=== PATIENT | female | born 1965 | race Hispanic/Latino ===

== ENCOUNTER 2017-04-20 14:06 | Emergency (ER) | payer SELFPAY | END 2017-04-20 15:14 | disposition home or self-care (01) | LOC: ERS 14:06 | DX: K03.81 Cracked tooth (principal); R59.0 Localized enlarged lymph nodes; E11.9 Type 2 diabetes mellitus without complications; F17.210 Nicotine dependence, cigarettes, uncomplicated; Z79.4 Long term (current) use of insulin; Z79.891 Long term (current) use of opiate analgesic; Z79.899 Other long term (current) drug therapy | CPT/HCPCS: 99283 ==

== ENCOUNTER 2017-07-16 11:40 | Inpatient (IN) | payer SELFPAY ==
[2017-07-16 13:45] LABS: Bilirubin Negative (Negative); Blood, Urine Large (Negative); Clarity CLOUDY (Clear); Glucose, Urine (Dipstick) >=1000 mg/dL (Negative); Leukocyte Negative (Negative); Nitrite Negative (Negative); Protein, Urine (Dipstick) > or equal to 300 mg/dL (Neg-Trace); Specific Gravity, Urine 1.028 (1.002-1.036); Urobilinogen 0.2 mg/dL (0.2-1.0)
[2017-07-16 13:47] LABS: Bacteria/HPF 1+ HPF (None Seen); Hyaline Casts/LPF 0-3 HYALINE CAST LPF (0-3 Hyaline)
[2017-07-16 13:57] LABS: Yeast-All Forms None Seen HPF (None Seen)
[2017-07-16] MEDS ORDERED: Acetaminophen 500 MG TAB ONE (14:06)
[2017-07-16 14:18] LABS: Hemoglobin 12.3 g/dL (12.0-16.0); Mean Corpuscular HGB CONC 32.5 g/dL (32.0-36.0); Mean Corpuscular Hemoglobin 30.3 pg (27.0-31.0); Mean Corpuscular Volume 93.3 fl (81.0-99.0); Mean Platelet Volume 7.5 fL (7.4-10.4); Platelet Count 282 thou/uL (130-400); RBC Distribution Width 11.9 % (11.5-14.5); Red Blood Cell (RBC) Count 4.06 mill/uL (4.20-5.40); White Blood Cell (WBC) Count 17.5 thou/uL (4.8-10.8)
[2017-07-16] MEDS ORDERED: Ketorolac Tromethamine 30 MG/ML VIAL ONE (14:20)
[2017-07-16 14:31] LABS: Band 25 % (5-11); Lymphocytes 2 % (21-51); MDiff Complete? YES; Monocytes 2 % (0-10); Neutrophil 70 % (42-75); PLT Morphology Comment Appears Adequate; RBC Morphology Normal
[2017-07-16 14:40] LABS: ALT (SGPT) 13 U/L (8-55); AST (SGOT) 16 U/L (5-34); Albumin 2.8 g/dL (3.5-5.0); Alkaline Phosphatase 128 U/L (40-150); Anion Gap 15 mmol/L (10-20); BUN (Urea Nitrogen) 21 mg/dL (7.0-18.7); Bilirubin, Total 0.5 mg/dL (0.2-1.2); Calc. Creatinine Clearance 0 mL/min (70-130); Calcium 9.5 mg/dL (7.8-10.44); Carbon Dioxide 24 mmol/L (22-29); Chloride 98 mmol/L (98-107); Estimated GFR-MDRD 38; Globulin 4.4 g/dL (2.4-3.5); Glucose 470 mg/dL (70-105); Potassium 3.8 mmol/L (3.5-5.1); Protein, Total 7.2 g/dL (6.0-8.3); Sodium 133 mmol/L (136-145)
[2017-07-16] MEDS ORDERED: Insulin Regular 300 UNITS/3 ML VIAL ONE (15:10)
--- NOTE | 2017-07-16 15:11 | RAD ---
PORTABLE CHEST 1 VIEW: DATE: 07/16/17. TIME: 1:31 p.m. HISTORY: Fever, back pain. FINDINGS/IMPRESSION: The heart size is normal. The lungs are expanded without focal areas of consolidation, pneumothorax, or pleural effusions. There is a plate of linear atelectasis in the right lower lung. POS: [facility]
--- NOTE | 2017-07-16 16:37 | CT ---
CT ABDOMEN AND PELVIS WITH IV CONTRAST: HISTORY: Fever. Abdominal and back pain. Chills. UTI. FINDINGS: There are mild dependent changes in the lung bases. Absence of oral contrast reduces the sensitivity of the exam. There is also subtle enhancement of the solid organs. Calcified gallstones are seen. No free air or free fluid is identified in the abdomen or pelvis. A normal appearing appendix is noted. There is fecal material in the rectosigmoid. A uterus is presen t. There is heterogeneity and enhancement of the left renal cortex with perirenal inflammatory changes. No hydroureteronephrosis is seen on either side. There is no evidence of aneurysmal dilatation of t he abdominal aorta. There are degenerative changes in the spine. IMPRESSION: Findings suspicious for pyelonephritis. A renal ultrasound should be performed after a course of antibiotics, to exclude renal mass. POS: [facility]
[2017-07-16] MEDS ORDERED: ISOVUE-370 76%-LOCM 1 ML ONE (17:04)
[2017-07-16] MEDS ORDERED: Dextrose 5% in Water 1,000 ML IV PRN (18:02)
[2017-07-16] MEDS ORDERED: HumaLOG 300 UNITS/3 ML VIAL SC PRN (18:02)
[2017-07-16] MEDS ORDERED: Dextrose 50% Abboject 50 ML SYRINGE SLOW IVP PRN (18:02)
[2017-07-16 18:31] VITALS: BMI 35.3
[2017-07-16] MEDS: Sodium Chloride 0.9% 1,000 ML IV SCH (18:38)
[2017-07-16 19:13] LABS: Lactic Acid 2.4 mmol/L (0.5-2.2)
[2017-07-16] MEDS: Ondansetron HCl/PF 4 MG/2 ML Vial IVP PRN (20:47)
[2017-07-16] MEDS: Famotidine 20 MG TAB PO SCH (20:48)
[2017-07-16] MEDS: Acetaminophen 325 MG TAB PO PRN (20:52)
--- NOTE | 2017-07-17 02:34 | HP ---
CHIEF COMPLAINT: Urinary frequency and generalized aches and fever. HISTORY OF PRESENT ILLNESS: This is a 52-year-old female patient, who presented to the ER with gener alized body aches and fever and urinary frequency. Denies any significant dysuria. On presentation to the ER, the patient was noted to be very ill-looking, required about 4 liters of IV fluid to stabi lize the hemodynamics. The patient noted to be very febrile with elevated lactate, received broad sp ectrum antibiotics including gentamicin, vancomycin, and cefepime. The patient is now being admitted for urinary tract infection that has progressed to urinary tract infection/pyelonephritis. The edgar ent denies any sick contacts. PAST MEDICAL HISTORY: Significant for diabetes, , depression, hypertension, and tobacco use. MEDICATIONS: Reviewed and as documented on frintit. ALLERGIES: No known drug allergies. FAMILY HISTORY: Not significantly related to the presenting illness. SOCIAL HISTORY: Significant for tobacco usage. No alcohol, no illicit drug use. REVIEW OF SYSTEMS: As documented in the body of the history. All the other systems were reviewed an d were found not to be significantly related to the presenting illness. LABORATORY INVESTIGATION: Showed a white count 17,500. Chemistry shows sodium 133, creatinine 1.47, blood sugar of 470 with BUN of 21, globulin 4.4 with albumin of 2.8. PHYSICAL EXAMINATION: GENERAL: The patient was found to be ill-looking. VITAL SIGNS: Blood pressure 109/56, respiratory rate 18, O2 sat of 96%. HEENT: Unremarkable. Moist oral mucosa. NECK: Supple. CARDIOVASCULAR SYSTEM: First and second heart sounds were heard. RESPIRATORY SYSTEM: Clear to auscultation anteriorly. DIGESTIVE SYSTEM: Revealed a benign abdomen. EXTREMITIES: No peripheral edema. SKIN: Showed dry skin. Otherwise, no new gross rash. LYMPHATICS: No peripheral lymphadenopathy. IMPRESSION: 1. Urinary tract infection/pyelonephritis. 2. Type 2 diabetes. 3. Tobacco use. 4. Hypertension. PLAN: 1. Admit the patient to ICU. 2. Broad spectrum antibiotics pending urine and blood culture and sensitivity. 3. IV fluid resuscitation. 4. Continue hypoglycemic agents in addition to sliding scale. 5. Further management to be dependent on the clinical course. The patient counseled on the need to discontinue tobacco usage. CODE STATUS: FULL.
[2017-07-17] MEDS ORDERED: Morphine 10 MG/ML CARPUJECT IV SCH (03:15)
[2017-07-17] MEDS ORDERED: HYDROcodone/Acetaminophen 5/325 mg Tablet PO PRN (03:19)
[2017-07-17] MEDS: Sodium Chloride 0.9% 1,000 ML IV SCH ×2 (03:28→12:29)
[2017-07-17] MEDS: Acetaminophen 325 MG TAB PO PRN ×3 (03:32→20:10)
[2017-07-17 05:43] LABS: Anion Gap 13 mmol/L (10-20); BUN (Urea Nitrogen) 26 mg/dL (7.0-18.7); Calc. Creatinine Clearance 73 mL/min (70-130); Calcium 7.9 mg/dL (7.8-10.44); Carbon Dioxide 20 mmol/L (22-29); Chloride 102 mmol/L (98-107); Estimated GFR-MDRD 39; Glucose 417 mg/dL (70-105); Potassium 3.7 mmol/L (3.5-5.1); Sodium 131 mmol/L (136-145)
[2017-07-17 05:44] LABS: Band 32 % (5-11); Hemoglobin 9.5 g/dL (12.0-16.0); Lymphocytes 6 % (21-51); MDiff Complete? YES; Mean Corpuscular HGB CONC 32.5 g/dL (32.0-36.0); Mean Corpuscular Hemoglobin 30.5 pg (27.0-31.0); Mean Corpuscular Volume 93.8 fl (81.0-99.0); Mean Platelet Volume 7.7 fL (7.4-10.4); Monocytes 5 % (0-10); Neutrophil 57 % (42-75); PLT Morphology Comment Appears Adequate; Platelet Count 190 thou/uL (130-400); RBC Distribution Width 12.1 % (11.5-14.5); Red Blood Cell (RBC) Count 3.13 mill/uL (4.20-5.40)
[2017-07-17] MEDS: Famotidine 20 MG TAB PO SCH ×2 (08:50→20:26)
[2017-07-17] MEDS: Enoxaparin Sodium 40 MG/0.4 ML SYRINGE SC SCH (08:50)
--- NOTE | 2017-07-17 11:32 | PDOC.PN ---
- Subjective Encounter Start Date: 07/17/17 Encounter Start Time: 15:00 Subjective: Patient with some cough and SOB since last night. Back pain better with -: Morphine. Patient desating some today before the morphine, better on O2 NC. - Objective MAR Reviewed: Yes Vital Signs & Weight: Vital Signs (12 hours) Temp Pulse Resp BP Pulse Ox 07/17/17 08:00 100.2 F H 89 20 96 07/17/17 07:52 100.2 F H 89 20 118/68 91 L 07/17/17 04:00 102 H 18 155/70 H 92 L 07/17/17 03:15 100 F H 07/17/17 00:00 96 18 117/58 L 97 Weight Weight 212 lb 6.4 oz I&O: 07/16/17 07/17/17 07/18/17 06:59 06:59 06:59 Intake Total 1740 120 Output Total 800 Balance 940 120 Result Diagrams: 07/17/17 04:41 07/17/17 04:41 Additional Labs: Accuchecks 07/17/17 07/17/17 07/16/17 11:14 06:28 20:56 POC Glucose 341 H 404 H 405 H Phys Exam - Physical Examination Constitutional: NAD HEENT: moist MMs occ rales in bases Cardiovascular: RRR, no significant murmur Gastrointestinal: soft, positive bowel sounds Musculoskeletal: no edema Neurological: non-focal, moves all 4 limbs Psychiatric: normal affect, A&O x 3 Dx/Plan (1) Pyelonephritis Code(s): N12 - TUBULO-INTERSTITIAL NEPHRITIS, NOT SPCF ACUTE OR CHRONIC Status: Acute Comment: On Cipro and Rocephin, E. coli growing from urine and blood (2) Sepsis Code(s): A41.9 - SEPSIS, UNSPECIFIED ORGANISM Status: Acute Qualifiers: Sepsis type: Escherichia coli Qualified Code(s): A41.51 - Sepsis due to Escherichia coli [E. coli] (3) Bacteremia due to Escherichia coli Code(s): R78.81 - BACTEREMIA Status: Acute (4) Diabetes mellitus with insulin therapy Code(s): E11.9 - TYPE 2 DIABETES MELLITUS WITHOUT COMPLICATIONS; Z79.4 - SKILLED NURSING (CURRENT) USE OF INSULIN Status: Acute Comment: Resume home Levemir (5) Hypertension Code(s): I10 - ESSENTIAL (PRIMARY) HYPERTENSION Status: Chronic Comment: not currently elevated (6) Acute renal failure (ARF) Status: Acute Comment: due to sepsis, continue fluid replacement, hold HOLLY-I for now - Plan cont current plan of care, continue antibiotics, DVT proph w/lovenox Patient desating a bit, on O2 now. Taking good po and urinating well so -: will d/c IV fluids. -: Will ask Dr. Huang to see her. * . - Discharge Day Encounter end time: 15:30
[2017-07-17] MEDS ORDERED: Insulin Detemir 100 UNITS/ML 30 UNITS in Pre-Filled Syringe 1 EACH SC SCH (11:45)
[2017-07-17] MEDS: Morphine 4 MG/ML VIAL SLOW IVP PRN ×2 (13:41→18:27)
[2017-07-17] MEDS: Ondansetron HCl/PF 4 MG/2 ML Vial IVP PRN (13:41)
[2017-07-17] MEDS: HumaLOG 300 UNITS/3 ML VIAL SC PRN ×2 (14:13→18:25)
[2017-07-17] MEDS ORDERED: cefTRIAXone\\ROCEPHIN 1 GM, Syringe 0.4 ML in Sterile Water 9.6 ML SLOW IVP SCH (15:00)
[2017-07-17] MEDS ORDERED: Sodium Chloride 0.9% 1,000 ML IV SCH (16:00)
--- NOTE | 2017-07-17 16:31 | RAD ---
RADIOGRAPH CHEST 1 VIEW: HISTORY: 52-year-old female with hypoxemia. FINDINGS: There are no air space densities, pulmonary edema, pneumothorax, or cardiomegaly. The lateral costop hrenic angles are sharp. IMPRESSION: No acute cardiopulmonary findings. aaliyah POS: [facility]
[2017-07-17] MEDS ORDERED: cefTRIAXone\\ROCEPHIN 1 GM in Sodium Chloride 0.9% 100 ML IVPB SCH (18:15)
[2017-07-17] MEDS: Ondansetron ODT 4 MG TAB PO PRN (18:33)
--- NOTE | 2017-07-17 19:47 | CON ---
DATE OF CONSULTATION: 07/17/2017 SERVICE: Pulmonary Medicine. REASON FOR CONSULTATION: IMCU patient. HISTORY OF PRESENT ILLNESS: The patient is a 52-year-old female with past medical history significant for essentially nothing. She presented to the hospital with a 3-day history of increasing fevers. These were spiking intermittently and got higher and higher up to 103. She also had flank discomfort in frequency. In the emergency department, she underwent a CT of the abdomen and pelvis. There were findings consistent with possible pyelonephritis. She was put on some antibiotics, aggressively and appropriately resuscitated with fluids. She clears her sepsis profile throughout the day and started having increasing oxygen requirements. She is a little bit sleepy right now, but she wakes up appropriately and answers all questions. She denies any current fevers, chills, nausea or vomiting. Her abdominal/back discomfort is improving dramatically. PAST MEDICAL HISTORY: 1. Type 2 diabetes mellitus. 2. Major depressive disorder. 3. Hypertension. 4. Tobacco abuse. PAST SURGICAL HISTORY: None. MEDICATIONS: List of her inpatient medications were reviewed. No specific updates were made at this time. ALLERGIES: No known drug allergies. SOCIAL HISTORY: Negative for current alcohol or illicit drug use. She has a 20 -pack-year history of smoking and continues to smoke half pack on a daily basis. FAMILY HISTORY: Noncontributory. REVIEW OF SYSTEMS: General, head, ears, eyes, nose, throat, cardiovascular, respiratory, GI, , musculoskeletal, neurologic and skin is negative except as mentioned in the HPI. PHYSICAL EXAMINATION: VITAL SIGNS: Currently afebrile with a T-max of 102.9. Pulse 90, blood pressure 124/66, respirations 20, saturation 98% on 2 liters nasal cannula while sleeping. Interestingly, when she woke up and started speaking, her saturations dropped to 89%. HEENT: Normocephalic, atraumatic. Sclerae are white, conjunctivae pink. Oral and nasal mucosa is moist without lesions. LUNGS: Excellent air entry. There is no prolonged expiratory phase. I do appreciate some crackles present. HEART: Normal rate, regular. ABDOMEN: Soft, nontender, nondistended. Bowel sounds are positive. She does have left flank tenderness as well as costovertebral angle tenderness. I do not appreciate rebound or guarding presently. MUSCULOSKELETAL: No cyanosis or clubbing. There is trace pitting in the bilateral lower extremities. NEUROLOGIC: Grossly nonfocal. LABORATORY DATA: Sodium 131, creatinine 1.41 and stable. Basic metabolic profile is otherwise unremarkable. WBC is down trending to 14.0. The band count is responding very nicely to 32%. Urinalysis is positive for lots of white blood cells, very few red blood cells, glycosuria and ketonuria. Blood cultures x2 are growing E. coli. Urine culture is also growing E. coli. Influenza for A and B is negative. ASSESSMENT: 1. Severe sepsis. 2. Pyelonephritis. 3. Acute kidney injury, presumed. 4. Type 2 diabetes mellitus. 5. Acute hypoxic respiratory failure. 6. Obstructive sleep apnea, possible. PLAN: My guess is the patient's third spacing some fluid into her lungs. The CT scan of the abdomen and pelvis demonstrated no evidence of acute inflammatory process of the lungs on presentation to the emergency department. I will provide her with a small dose of Lasix. We will wean oxygen away as tolerated and focus on mobilizing her starting tomorrow morning. In the morning , if she remains stable and is on minimal oxygen, she can be transitioned out of the ICU to the medical unit. I will continue to follow for the time being. 70 minutes have been devoted to this patient in various activities. For at least half of this time, I was at the bedside in direct patient interaction or coordinating care with the care team. For the remainder of the time I was immediately available to the patient in the hospital unit. JUICE
[2017-07-17] MEDS: traZODone HCl 50 MG TAB PO SCH (20:26)
[2017-07-17] MEDS: Insulin Detemir 100 UNITS/ML 40 UNITS in Pre-Filled Syringe 1 EACH SC SCH (20:28)
[2017-07-18] MEDS: Ondansetron HCl/PF 4 MG/2 ML Vial IVP PRN ×2 (01:42→21:03)
[2017-07-18] MEDS ORDERED: Promethazine HCl 25 MG/ML VIAL SLOW IVP PRN (04:55)
[2017-07-18 04:56] LABS: #Eosinphils 0.1 thou/uL (0.0-0.7); #Lymphocytes 1.6 thou/uL (1.20-3.40); #Monocytes 0.8 thou/uL (0.11-0.59); #Neutrophils 10.8 thou/uL (1.40-6.50); %Basophils 0.1 % (0.0-1.0); %Eosinophils 0.9 % (0.0-10.0); %Lymphocytes 12.1 % (21.0-51.0); %Neutrophils 80.9 % (42.0-75.0); Hemoglobin 9.2 g/dL (12.0-16.0); Mean Corpuscular HGB CONC 32.8 g/dL (32.0-36.0); Mean Corpuscular Hemoglobin 30.9 pg (27.0-31.0); Mean Corpuscular Volume 94.2 fl (81.0-99.0); Mean Platelet Volume 7.6 fL (7.4-10.4); Platelet Count 184 thou/uL (130-400); RBC Distribution Width 12.3 % (11.5-14.5); Red Blood Cell (RBC) Count 2.99 mill/uL (4.20-5.40); White Blood Cell (WBC) Count 13.3 thou/uL (4.8-10.8)
[2017-07-18 04:58] LABS: Anion Gap 11 mmol/L (10-20); BUN (Urea Nitrogen) 27 mg/dL (7.0-18.7); Calc. Creatinine Clearance 72 mL/min (70-130); Calcium 8.5 mg/dL (7.8-10.44); Carbon Dioxide 21 mmol/L (22-29); Chloride 104 mmol/L (98-107); Estimated GFR-MDRD 39; Glucose 136 mg/dL (70-105); Potassium 3.4 mmol/L (3.5-5.1); Sodium 133 mmol/L (136-145)
[2017-07-18] MEDS ORDERED: Furosemide 20 MG/2 ML VIAL SLOW IVP SCH ×2 (06:00)
[2017-07-18] MEDS: Enoxaparin Sodium 40 MG/0.4 ML SYRINGE SC SCH (08:03)
[2017-07-18] MEDS: Famotidine 20 MG TAB PO SCH (08:03)
[2017-07-18] MEDS ORDERED: FLU VACC QS2017-18 36 mo. & older 0.5 ML SYRINGE IM ONE (09:00)
[2017-07-18] MEDS: Insulin Detemir 100 UNITS/ML 30 UNITS in Pre-Filled Syringe 1 EACH SC SCH (10:19)
[2017-07-18] MEDS: Acetaminophen 325 MG TAB PO PRN ×2 (11:51→20:55)
--- NOTE | 2017-07-18 12:17 | PDOC.PN ---
- Subjective Encounter Start Date: 07/18/17 Encounter Start Time: 12:15 Subjective: Anterior chest wall sore from coughing/nausea yesterday. Cough and nausea -: improved. Back pain better. No more fever. Off O2 this AM. - Objective MAR Reviewed: Yes Vital Signs & Weight: Vital Signs (12 hours) Temp Pulse Resp BP Pulse Ox 07/18/17 08:00 99.4 F 82 20 97 07/18/17 07:40 99.4 F 82 20 138/69 94 L 07/18/17 04:00 99.5 F 90 20 140/76 92 L Weight Weight 218 lb 8 oz I&O: 07/17/17 07/18/17 07/19/17 06:59 06:59 06:59 Intake Total 1740 670 120 Output Total 800 350 750 Balance 940 320 -630 Result Diagrams: 07/18/17 04:18 07/18/17 04:18 Additional Labs: Accuchecks 07/18/17 07/18/17 07/17/17 11:36 05:59 20:26 POC Glucose 113 H 123 H 234 H 07/17/17 07/17/17 16:51 14:13 POC Glucose 284 H 333 H Phys Exam - Physical Examination Constitutional: NAD HEENT: moist MMs Respiratory: no wheezing, no rales, no rhonchi, clear to auscultation bilateral TTP anteriorly reproduces pain Cardiovascular: RRR, no significant murmur Gastrointestinal: soft, non-tender, positive bowel sounds Musculoskeletal: no edema Neurological: non-focal, moves all 4 limbs Psychiatric: normal affect, A&O x 3 Dx/Plan (1) Pyelonephritis Code(s): N12 - TUBULO-INTERSTITIAL NEPHRITIS, NOT SPCF ACUTE OR CHRONIC Status: Acute Comment: On Cipro and Rocephin, E. coli growing from urine and blood, pansensitive, will d/c Rocephin (2) Sepsis Code(s): A41.9 - SEPSIS, UNSPECIFIED ORGANISM Status: Acute Qualifiers: Sepsis type: Escherichia coli Qualified Code(s): A41.51 - Sepsis due to Escherichia coli [E. coli] (3) Bacteremia due to Escherichia coli Code(s): R78.81 - BACTEREMIA Status: Acute (4) Diabetes mellitus with insulin therapy Code(s): E11.9 - TYPE 2 DIABETES MELLITUS WITHOUT COMPLICATIONS; Z79.4 - HALF-WAY (CURRENT) USE OF INSULIN Status: Acute Comment: Resume home Levemir (5) Hypertension Code(s): I10 - ESSENTIAL (PRIMARY) HYPERTENSION Status: Chronic Comment: not currently elevated (6) Acute renal failure (ARF) Status: Acute Comment: due to sepsis, stable (7) Hypoxia Code(s): R09.02 - HYPOXEMIA Status: Acute Comment: likely secondary to 3rd spacing of fluids, IV fluids stopped and single dose Lasix yesterday, stable today (8) Hypokalemia Code(s): E87.6 - HYPOKALEMIA Status: Acute Comment: likely due to Lasix dose , will give oral replacement today and recheck in AM - Plan cont current plan of care, continue antibiotics, DVT proph w/lovenox Stable for transfer to medical * . - Discharge Day Encounter end time: 12:30
[2017-07-18] MEDS ORDERED: Potassium Chloride 20 MEQ TAB PO SCH ×2 (12:30→20:30)
[2017-07-18] MEDS: Morphine 4 MG/ML VIAL SLOW IVP PRN (13:09)
[2017-07-18] MEDS: HYDROcodone/Acetaminophen 5/325 mg Tablet PO PRN (17:49)
[2017-07-18] MEDS: traZODone HCl 50 MG TAB PO SCH (20:55)
[2017-07-18] MEDS: Insulin Detemir 100 UNITS/ML 40 UNITS in Pre-Filled Syringe 1 EACH SC SCH (21:13)
--- NOTE | 2017-07-19 01:05 | PRG ---
DATE OF SERVICE: 07/18/2017 SERVICE: Pulmonary Medicine. INTERVAL HISTORY: The patient is doing great from a respiratory standpoint. She does not have any s ignificant shortness of breath or chest discomfort. Her flank pain is little improved. She denies a ny current fevers, chills, nausea or vomiting. There were no overnight events. Her blood pressures have firmed up very nicely. If anything, she is a touch hypertensive today. PHYSICAL EXAMINATION: VITAL SIGNS: Currently afebrile with a T-max overnight of 100.1. Pulse 80, blood pressure 143/81, r espirations 18, saturation 98% on room air. GENERAL: The patient is awake and alert, in no apparent distress. LUNGS: Decent air entry. There is no prolonged expiratory phase. Dependent crackles are evident. HEART: Normal rate, regular. ABDOMEN: Soft, nontender, nondistended. Bowel sounds are positive. MUSCULOSKELETAL: No cyanosis or clubbing. No pitting in the bilateral lower extremities. NEUROLOGIC: Grossly nonfocal. LABORATORY DATA: WBC 13.3, hemoglobin 9.2, platelets 184,000. Creatinine 1.42 and roughly stable. BUN 27, potassium 3.4. E. coli is growing in both the blood and the urine. Both of these organisms are pansensitive. Influenza A and B is unremarkable. ASSESSMENT: 1. Severe sepsis, resolving. 2. Pyelonephritis secondary to Escherichia coli. 3. Bacteremia secondary to Escherichia coli. 4. Acute kidney injury (versus chronic kidney disease). 5. Type 2 diabetes mellitus. 6. Acute hypoxic respiratory failure, resolved. 7. Obstructive sleep apnea, possible. PLAN: We will continue to gently diurese the patient. Potassium is low and will be replaced today. At this point, she has no further requirements for IMCU placement. As such, we can consider transit ioning her to the floor. Antibiotics could be tailored based on sensitivities.
[2017-07-19] MEDS: diphenhydrAMINE 25 MG CAP PO PRN (01:32)
[2017-07-19] MEDS: Aspirin/APAP/Caffeine Tab (Excedrin Migraine) PO PRN (01:33)
[2017-07-19 06:02] LABS: #Eosinphils 0.3 thou/uL (0.0-0.7); #Lymphocytes 1.9 thou/uL (1.20-3.40); #Monocytes 0.9 thou/uL (0.11-0.59); #Neutrophils 7.1 thou/uL (1.40-6.50); %Basophils 0.2 % (0.0-1.0); %Eosinophils 2.9 % (0.0-10.0); %Lymphocytes 18.4 % (21.0-51.0); %Neutrophils 69.5 % (42.0-75.0); Hemoglobin 8.9 g/dL (12.0-16.0); Mean Corpuscular HGB CONC 32.5 g/dL (32.0-36.0); Mean Corpuscular Hemoglobin 30.8 pg (27.0-31.0); Mean Corpuscular Volume 94.7 fl (81.0-99.0); Mean Platelet Volume 7.5 fL (7.4-10.4); Platelet Count 225 thou/uL (130-400); RBC Distribution Width 12.4 % (11.5-14.5); Red Blood Cell (RBC) Count 2.89 mill/uL (4.20-5.40); White Blood Cell (WBC) Count 10.2 thou/uL (4.8-10.8)
[2017-07-19 06:14] LABS: Anion Gap 12 mmol/L (10-20); BUN (Urea Nitrogen) 22 mg/dL (7.0-18.7); Calc. Creatinine Clearance 98 mL/min (70-130); Calcium 8.6 mg/dL (7.8-10.44); Carbon Dioxide 21 mmol/L (22-29); Chloride 107 mmol/L (98-107); Estimated GFR-MDRD 54; Glucose 66 mg/dL (70-105); Potassium 3.6 mmol/L (3.5-5.1); Sodium 136 mmol/L (136-145)
[2017-07-19] MEDS: Enoxaparin Sodium 40 MG/0.4 ML SYRINGE SC SCH (08:52)
[2017-07-19] MEDS: Insulin Detemir 100 UNITS/ML 30 UNITS in Pre-Filled Syringe 1 EACH SC SCH (09:49)
[2017-07-19] MEDS: HumaLOG 300 UNITS/3 ML VIAL SC PRN (14:21)
[2017-07-19] MEDS: HYDROcodone/Acetaminophen 5/325 mg Tablet PO PRN (14:24)
--- NOTE | 2017-07-19 18:11 | PDOC.PN ---
- Subjective Encounter Start Date: 07/19/17 Encounter Start Time: 12:00 Subjective: Patient feeling better. Pain in back better. A little shakey when got up -: earlier. - Objective MAR Reviewed: Yes Vital Signs & Weight: Vital Signs (12 hours) Temp Pulse Resp BP Pulse Ox 07/19/17 16:09 98.5 F 85 16 151/81 H 96 07/19/17 12:13 98.0 F 80 14 157/73 H 99 07/19/17 07:42 98.1 F 81 14 137/81 96 07/19/17 07:00 98.1 F 81 14 Weight Weight 218 lb 8 oz I&O: 07/18/17 07/19/17 07/20/17 06:59 06:59 06:59 Intake Total 670 6100 360 Output Total 350 750 Balance 320 5350 360 Result Diagrams: 07/19/17 05:16 07/19/17 05:16 Additional Labs: Accuchecks 07/19/17 07/19/17 07/19/17 15:14 10:27 06:21 POC Glucose 116 H 177 H 84 07/18/17 21:12 POC Glucose 131 H Phys Exam - Physical Examination Constitutional: NAD HEENT: moist MMs Respiratory: no wheezing, no rales, no rhonchi, clear to auscultation bilateral Cardiovascular: RRR, no significant murmur Gastrointestinal: soft, non-tender, positive bowel sounds Neurological: non-focal, moves all 4 limbs Psychiatric: normal affect, A&O x 3 Dx/Plan (1) Pyelonephritis Code(s): N12 - TUBULO-INTERSTITIAL NEPHRITIS, NOT SPCF ACUTE OR CHRONIC Status: Acute Comment: On Cipro and Rocephin, E. coli growing from urine and blood, pansensitive, will d/c Rocephin. Switching to oral Cipro. (2) Sepsis Code(s): A41.9 - SEPSIS, UNSPECIFIED ORGANISM Status: Acute Qualifiers: Sepsis type: Escherichia coli Qualified Code(s): A41.51 - Sepsis due to Escherichia coli [E. coli] (3) Bacteremia due to Escherichia coli Code(s): R78.81 - BACTEREMIA Status: Acute (4) Diabetes mellitus with insulin therapy Code(s): E11.9 - TYPE 2 DIABETES MELLITUS WITHOUT COMPLICATIONS; Z79.4 - INTERMEDIATE (CURRENT) USE OF INSULIN Status: Acute Comment: Resume home Levemir (5) Hypertension Code(s): I10 - ESSENTIAL (PRIMARY) HYPERTENSION Status: Chronic Comment: not currently elevated (6) Acute renal failure (ARF) Status: Resolved Comment: improved (7) Hypoxia Code(s): R09.02 - HYPOXEMIA Status: Acute Comment: likely secondary to 3rd spacing of fluids, improved with Lasix (8) Hypokalemia Code(s): E87.6 - HYPOKALEMIA Status: Resolved - Plan cont current plan of care, continue antibiotics * . - Discharge Day Encounter end time: 12:30
[2017-07-19] MEDS: Acetaminophen 325 MG TAB PO PRN (21:15)
[2017-07-19] MEDS: traZODone HCl 50 MG TAB PO SCH (21:16)
[2017-07-19] MEDS: Insulin Detemir 100 UNITS/ML 40 UNITS in Pre-Filled Syringe 1 EACH SC SCH (21:16)
[2017-07-19] MEDS: Ciprofloxacin 500 MG TAB PO SCH (21:17)
[2017-07-19] MEDS: metFORMIN 500 MG TAB PO SCH (21:17)
[2017-07-20] MEDS: Aspirin/APAP/Caffeine Tab (Excedrin Migraine) PO PRN ×2 (03:41→11:50)
[2017-07-20] MEDS: diphenhydrAMINE 25 MG CAP PO PRN (03:41)
[2017-07-20] MEDS: Ciprofloxacin 500 MG TAB PO SCH ×2 (05:19→19:59)
[2017-07-20 06:16] LABS: Anion Gap 12 mmol/L (10-20); BUN (Urea Nitrogen) 16 mg/dL (7.0-18.7); Calc. Creatinine Clearance 125 mL/min (70-130); Calcium 9.1 mg/dL (7.8-10.44); Carbon Dioxide 23 mmol/L (22-29); Chloride 105 mmol/L (98-107); Estimated GFR-MDRD 72; Glucose 82 mg/dL (70-105); Potassium 3.4 mmol/L (3.5-5.1); Sodium 137 mmol/L (136-145)
--- NOTE | 2017-07-20 07:52 | PDOC.PN ---
- Subjective Encounter Start Date: 07/20/17 Encounter Start Time: 10:00 Subjective: Patient was in shower, pulling up on a grab bar and it came off wall , hit -: left forehead. Large goose egg that is very painful but no LOC or other -: neuro signs. Had some back pain last night, better this AM. - Objective MAR Reviewed: Yes Vital Signs & Weight: Vital Signs (12 hours) Temp Pulse Resp BP Pulse Ox 07/20/17 04:41 98.5 F 78 15 154/81 H 98 07/20/17 00:02 98.5 F 80 16 117/67 93 L 07/19/17 20:10 98.6 F 92 16 139/83 96 07/19/17 20:00 98.6 F 92 16 96 Weight Weight 218 lb 8 oz I&O: 07/19/17 07/20/17 07/21/17 06:59 06:59 06:59 Intake Total 6100 2110 Output Total 750 Balance 5350 2110 Result Diagrams: 07/19/17 05:16 07/20/17 04:42 Additional Labs: Accuchecks 07/20/17 07/19/17 07/19/17 06:04 20:59 15:14 POC Glucose 72 152 H 116 H 07/19/17 10:27 POC Glucose 177 H Phys Exam - Physical Examination Constitutional: NAD HEENT: moist MMs large goose egg on left forehead, no bony deformity or laceration Respiratory: no wheezing, no rales, no rhonchi Cardiovascular: RRR, no significant murmur Gastrointestinal: soft, non-tender, positive bowel sounds Neurological: non-focal, moves all 4 limbs Psychiatric: normal affect, A&O x 3 Dx/Plan (1) Pyelonephritis Code(s): N12 - TUBULO-INTERSTITIAL NEPHRITIS, NOT SPCF ACUTE OR CHRONIC Status: Acute Comment: On Cipro and Rocephin, E. coli growing from urine and blood, pansensitive, will d/c Rocephin. Switching to oral Cipro. (2) Sepsis Code(s): A41.9 - SEPSIS, UNSPECIFIED ORGANISM Status: Resolved Qualifiers: Sepsis type: Escherichia coli Qualified Code(s): A41.51 - Sepsis due to Escherichia coli [E. coli] (3) Bacteremia due to Escherichia coli Code(s): R78.81 - BACTEREMIA Status: Acute (4) Diabetes mellitus with insulin therapy Code(s): E11.9 - TYPE 2 DIABETES MELLITUS WITHOUT COMPLICATIONS; Z79.4 - SURGERY NURSE (CURRENT) USE OF INSULIN Status: Chronic Comment: Resume home Levemir (5) Hypertension Code(s): I10 - ESSENTIAL (PRIMARY) HYPERTENSION Status: Chronic Comment: not currently elevated (6) Acute renal failure (ARF) Status: Resolved Comment: improved (7) Hypoxia Code(s): R09.02 - HYPOXEMIA Status: Resolved Comment: likely secondary to 3rd spacing of fluids, improved with Lasix (8) Hypokalemia Code(s): E87.6 - HYPOKALEMIA Status: Acute Comment: oral replacement (9) Contusion of forehead Code(s): S00.83XA - CONTUSION OF OTHER PART OF HEAD, INITIAL ENCOUNTER Status : Acute Comment: no sign of concussion or deformity at this time, no neuro symptoms, no imaging needed at this time - Plan cont current plan of care, continue antibiotics, PT/OT Likely home in AM * . - Discharge Day Encounter end time: 10:30
[2017-07-20] MEDS ORDERED: Potassium Chloride 20 MEQ TAB PO SCH (08:00)
[2017-07-20] MEDS: metFORMIN 500 MG TAB PO SCH ×2 (09:04→20:01)
[2017-07-20] MEDS: Enoxaparin Sodium 40 MG/0.4 ML SYRINGE SC SCH (09:05)
[2017-07-20] MEDS: Insulin Detemir 100 UNITS/ML 30 UNITS in Pre-Filled Syringe 1 EACH SC SCH (09:10)
[2017-07-20] MEDS: Insulin Detemir 100 UNITS/ML 40 UNITS in Pre-Filled Syringe 1 EACH SC SCH (20:01)
[2017-07-20] MEDS: traZODone HCl 50 MG TAB PO SCH (20:01)
[2017-07-20] MEDS: HYDROcodone/Acetaminophen 5/325 mg Tablet PO PRN (20:01)
[2017-07-21] MEDS: Ondansetron ODT 4 MG TAB PO PRN (03:20)
[2017-07-21] MEDS: Ciprofloxacin 500 MG TAB PO SCH (05:17)
[2017-07-21 06:53] LABS: Anion Gap 13 mmol/L (10-20); BUN (Urea Nitrogen) 12 mg/dL (7.0-18.7); Calc. Creatinine Clearance 128 mL/min (70-130); Calcium 9.1 mg/dL (7.8-10.44); Carbon Dioxide 22 mmol/L (22-29); Chloride 104 mmol/L (98-107); Estimated GFR-MDRD 74; Glucose 185 mg/dL (70-105); Potassium 4.3 mmol/L (3.5-5.1); Sodium 135 mmol/L (136-145)
[2017-07-21 07:32] LABS: Band 5 % (5-11); Eosinophils 2 % (0-10); Hemoglobin 9.8 g/dL (12.0-16.0); Lymphocytes 18 % (21-51); MDiff Complete? YES; Mean Corpuscular HGB CONC 32.7 g/dL (32.0-36.0); Mean Corpuscular Hemoglobin 30.9 pg (27.0-31.0); Mean Corpuscular Volume 94.7 fl (81.0-99.0); Mean Platelet Volume 6.7 fL (7.4-10.4); Monocytes 3 % (0-10); Neutrophil 72 % (42-75); Nucleated RBC 1 % (0); Platelet Count 410 thou/uL (130-400); RBC Distribution Width 12.7 % (11.5-14.5); Red Blood Cell (RBC) Count 3.18 mill/uL (4.20-5.40); White Blood Cell (WBC) Count 12.1 thou/uL (4.8-10.8)
[2017-07-21] MEDS: metFORMIN 500 MG TAB PO SCH (08:54)
[2017-07-21] MEDS: Enoxaparin Sodium 40 MG/0.4 ML SYRINGE SC SCH (08:55)
[2017-07-21] MEDS: Insulin Detemir 100 UNITS/ML 30 UNITS in Pre-Filled Syringe 1 EACH SC SCH (08:59)
[2017-07-21 12:02] VITALS: BP 159/87; TEMP 98
[2017-07-21] MEDS: HumaLOG 300 UNITS/3 ML VIAL SC PRN (12:47)
--- NOTE | 2017-07-21 18:15 | DIS ---
DATE OF DISCHARGE: 07/21/2017 DISCHARGE DISPOSITION: Home. FOLLOWUP: Followup with primary care physician at [facility] Anna Sky in 1 week. DISCHARGE MEDICATIONS: 1. Ciprofloxacin 500 mg b.i.d. 2. Accupril 5 mg daily. 3. Trazodone 25 mg at bedtime. 4. Metformin 1000 mg b.i.d. 5. Levemir 40 units at bedtime and 30 units daily. 6. Ciprofloxacin 500 mg b.i.d. for the next 10 days. INPATIENT CONSULTANTS: Critical care, Dr. Huang. The patient was seen and examined on the day of discharge and denies any new complaints. No chest pa in, shortness of breath or palpitations. BRIEF HOSPITAL COURSE: The patient is a 52-year-old female with diabetes mellitus type 2, p resented to the hospital with generalized aches with fever and urinary frequency. Please refer to e history and physical dated 07/16/2017 for further details. The patient was admitted to the hospital with the diagnosis of severe sepsis with acute organ dysfunc tion secondary to pyelonephritis. She was monitored in the Intensive Care Unit setting and was later transferred to the medical floor. She has been afebrile over the last 48 hours. Urine and blood cu lture was consistent with E. coli sensitive to quinolones. She appears stable for discharge. SIGNIFICANT LABORATORY DATA: 1. WBC on admission 17.5 with 25% bandemia. 2. Lactic acidosis on admission 2.8. 3. Creatinine on admission 1.47, at discharge 0.82. 4. Urinalysis showed greater than 50 WBCs with 1+ bacteria. 5. Urine and 2 of 2 blood culture positive for Escherichia coli. 5. CT scan of the abdomen and pelvis done in the emergency room was consistent with pyelonephritis. FINAL DIAGNOSES: 1. Severe sepsis with acute organ dysfunction secondary to Escherichia coli urinary tract infection with Escherichia coli bacteremia. 2. Acute kidney injury on chronic kidney disease stage 2, resolved, secondary to sepsis. 3. Diabetes mellitus type 2. 4. Suspected obstructive sleep apnea. A sleep study as an outpatient is recommended. 5. Dehydration. 6. Obesity with a BMI of 36.4. Plan of care was discussed with the patient. She stated understanding. Total time coordinating the discharge including the note for work was 36 minutes.
--- NOTE | 2017-08-26 18:58 | EKG ---
Test Reason : Blood Pressure : / mmHG Vent. Rate : 118 BPM Atrial Rate : 118 BPM P-R Int : 138 ms QRS Dur : 072 ms QT Int : 330 ms P-R-T Axes : 057 037 049 degrees QTc Int : 462 ms Sinus tachycardia Otherwise normal ECG Confirmed by TERRELL STYLES, MAX Vogel ([id number]), manager editorial ANCA LOZANO ([id number] on 08/26/2017 6:58:00 PM Referred By: Confirmed By:MAX TEJADA MD
== END 2017-07-21 14:58 | disposition home or self-care (01) | DRG 871 ==
LOC: ERS 11:40 → IMCU/EMU 18:17 → SURG A 07-18 15:00
PROVIDERS: ADMIT Internal Medicine Nephrology; ATTEND Internal Medicine Nephrology
DX: A41.51 Sepsis due to Escherichia coli [E. coli] (principal); J96.01 Acute respiratory failure with hypoxia; N17.9 Acute kidney failure, unspecified; N12 Tubulo-interstitial nephritis, not specified as acute or chronic; N39.0 Urinary tract infection, site not specified; E11.22 Type 2 diabetes mellitus with diabetic chronic kidney disease; B96.20 Unspecified Escherichia coli [E. coli] as the cause of diseases classified elsewhere; E66.9 Obesity, unspecified; R65.20 Severe sepsis without septic shock; F32.9 Major depressive disorder, single episode, unspecified; F17.210 Nicotine dependence, cigarettes, uncomplicated; G47.33 Obstructive sleep apnea (adult) (pediatric); Z79.84 Long term (current) use of oral hypoglycemic drugs; Z79.4 Long term (current) use of insulin; E86.0 Dehydration; Z68.36 Body mass index [BMI] 36.0-36.9, adult; S00.83XA Contusion of other part of head, initial encounter; W20.8XXA Other cause of strike by thrown, projected or falling object, initial encounter; Y93.E1 Activity, personal bathing and showering; Y92.231 Patient bathroom in hospital as the place of occurrence of the external cause; E87.6 Hypokalemia; I12.9 Hypertensive chronic kidney disease with stage 1 through stage 4 chronic kidney disease, or unspecified chronic kidney disease; N18.2 Chronic kidney disease, stage 2 (mild)
CPT/HCPCS: 36415; 36416; 71010; 71045; 74177; 80048; 80053; 81003; 81015; 83605; 85025; 87040; 87077; 87086; 87149; 87186; 87804; 93005; 96361; 96365; 96367; 96375; A4216; G8978-GP-CK; G8979-GP-CK; G8980-GP-CK; G8987-GO-CI; G8988-GO-CI; G8989-GO-CI; J0696; J0744; J1580; J1650; J1815; J1885; J2270; J2405; J3370; J7050; Q0162

== ENCOUNTER 2017-10-21 03:14 | Emergency (ER) | payer SELFPAY ==
[2017-10-21] MEDS ORDERED: Ibuprofen 800 MG TAB ONE (04:01)
[2017-10-21] MEDS ORDERED: Adacel (T-DAP) 0.5 ML VIAL ONE (04:01)
[2017-10-21] MEDS ORDERED: Lidocaine 2% PF 5 ML VIAL ONE (04:01)
--- NOTE | 2017-10-21 09:37 | RAD ---
RIGHT LOWER LEG 2 VIEWS: Date: 10/21/17 HISTORY: Right leg injury. FINDINGS: Tibia and fibula are intact. No acute fracture, dislocation, or aggressive osseous erosions. Fibular distal tip is excluded from the lateral view. IMPRESSION: No acute osseous abnormalities are demonstrated. POS: [facility]
== END 2017-10-21 05:17 | disposition home or self-care (01) ==
LOC: ERS 03:14
DX: Z79.4 Long term (current) use of insulin; F17.210 Nicotine dependence, cigarettes, uncomplicated; L02.415 Cutaneous abscess of right lower limb; E11.9 Type 2 diabetes mellitus without complications; I10 Essential (primary) hypertension; L03.115 Cellulitis of right lower limb
CPT/HCPCS: 10060; 90471; 90715; J2001

== ENCOUNTER 2017-12-31 19:00 | Emergency (ER) | payer SELFPAY ==
[2017-12-31 19:30] LABS: #Basophils 0.1 thou/uL (0.0-0.2); #Eosinphils 0.3 thou/uL (0.0-0.7); #Lymphocytes 2.9 thou/uL (1.20-3.40); #Monocytes 0.5 thou/uL (0.11-0.59); #Neutrophils 5.2 thou/uL (1.40-6.50); %Basophils 0.7 % (0.0-1.0); %Eosinophils 3.4 % (0.0-10.0); %Lymphocytes 32.4 % (21.0-51.0); %Monocytes 5.5 % (0.0-10.0); Hemoglobin 12.5 g/dL (12.0-16.0); Mean Corpuscular HGB CONC 34.9 g/dL (32.0-36.0); Mean Corpuscular Hemoglobin 31.4 pg (27.0-31.0); Mean Corpuscular Volume 89.8 fl (81.0-99.0); Mean Platelet Volume 7.4 fL (7.4-10.4); Platelet Count 311 thou/uL (130-400); RBC Distribution Width 12.2 % (11.5-14.5); White Blood Cell (WBC) Count 8.9 thou/uL (4.8-10.8)
[2017-12-31 19:50] LABS: BHCG - Serum Negative (NEGATIVE); Pregs Control Background? CLEAR/WHITE (CLR/WHITE); Pregs Control Bar Appear? YES (CONTROL BAR)
[2017-12-31 19:53] LABS: ALT (SGPT) 13 U/L (8-55); AST (SGOT) 12 U/L (5-34); Albumin 3.4 g/dL (3.5-5.0); Alkaline Phosphatase 72 U/L (40-150); Anion Gap 12 mmol/L (10-20); BUN (Urea Nitrogen) 18 mg/dL (7.0-18.7); Bilirubin, Total 0.2 mg/dL (0.2-1.2); CK (CPK) 60 U/L (29-168); Calc. Creatinine Clearance 0 mL/min (70-130); Calcium 9.1 mg/dL (7.8-10.44); Carbon Dioxide 24 mmol/L (22-29); Chloride 102 mmol/L (98-107); Estimated GFR-MDRD 41; Globulin 3.7 g/dL (2.4-3.5); Glucose 489 mg/dL (70-105); Lipase 64 U/L (8-78); Potassium 4.1 mmol/L (3.5-5.1); Protein, Total 7.1 g/dL (6.0-8.3); Sodium 134 mmol/L (136-145)
[2017-12-31 20:04] LABS: Bilirubin Negative (Negative); Blood, Urine Small (Negative); Clarity CLEAR (Clear); Glucose, Urine (Dipstick) >=1000 mg/dL (Negative); Leukocyte Negative (Negative); Nitrite Negative (Negative); Protein, Urine (Dipstick) 300 mg/dL (Neg-Trace); Specific Gravity, Urine 1.027 (1.002-1.036); Urobilinogen 0.2 mg/dL (0.2-1.0)
[2017-12-31 20:05] LABS: Bacteria/HPF None Seen HPF (None Seen); Hyaline Casts/LPF 0-3 HYALINE CAST LPF (0-3 Hyaline); Pathc Cast-AUWi Flag 0.14 (0-2.49); Squamous Epithelial 0-3 HPF (0-3); WBC/HPF 0-3 HPF (0-3)
== END 2017-12-31 21:22 | disposition home or self-care (01) ==
LOC: ERS 19:00
DX: N93.9 Abnormal uterine and vaginal bleeding, unspecified (principal); E11.9 Type 2 diabetes mellitus without complications; I10 Essential (primary) hypertension; F17.210 Nicotine dependence, cigarettes, uncomplicated; Z79.4 Long term (current) use of insulin; Z79.899 Other long term (current) drug therapy
CPT/HCPCS: 36415; 80053; 81003; 81015; 82550; 83690; 84703; 85025; 93005

== ENCOUNTER 2018-01-28 00:26 | Emergency (ER) | payer SELFPAY ==
[2018-01-28 02:13] LABS: #Eosinphils 0.2 thou/uL (0.0-0.7); #Lymphocytes 2.4 thou/uL (1.20-3.40); #Monocytes 0.6 thou/uL (0.11-0.59); #Neutrophils 6.8 thou/uL (1.40-6.50); %Basophils 0.4 % (0.0-1.0); %Eosinophils 2.3 % (0.0-10.0); %Monocytes 6.1 % (0.0-10.0); %Neutrophils 67.1 % (42.0-75.0); Hemoglobin 13.4 g/dL (12.0-16.0); Mean Corpuscular HGB CONC 35.3 g/dL (32.0-36.0); Mean Corpuscular Hemoglobin 31.3 pg (27.0-31.0); Mean Corpuscular Volume 88.6 fL (78.0-98.0); Mean Platelet Volume 7.2 fL (7.4-10.4); Platelet Count 322 thou/uL (130-400); RBC Distribution Width 11.9 % (11.5-14.5); Red Blood Cell (RBC) Count 4.29 mill/uL (4.20-5.40); White Blood Cell (WBC) Count 10.1 thou/uL (4.8-10.8)
[2018-01-28 02:33] LABS: ALT (SGPT) 18 U/L (8-55); AST (SGOT) 16 U/L (5-34); Albumin 3.7 g/dL (3.5-5.0); Alkaline Phosphatase 83 U/L (40-150); Anion Gap 15 mmol/L (10-20); BUN (Urea Nitrogen) 27 mg/dL (7.0-18.7); Bilirubin, Total 0.3 mg/dL (0.2-1.2); Calc. Creatinine Clearance 0 mL/min (70-130); Calcium 10.2 mg/dL (7.8-10.44); Carbon Dioxide 21 mmol/L (22-29); Chloride 103 mmol/L (98-107); Estimated GFR-MDRD 42; Globulin 4.2 g/dL (2.4-3.5); Glucose 487 mg/dL (70-105); Potassium 4.6 mmol/L (3.5-5.1); Protein, Total 7.9 g/dL (6.0-8.3); Sodium 134 mmol/L (136-145)
[2018-01-28] MEDS ORDERED: Ketorolac Tromethamine 30 MG/ML VIAL ONE (03:05)
[2018-01-28 03:12] LABS: Bilirubin Negative (Negative); Blood, Urine Small (Negative); Clarity CLEAR (Clear); Glucose, Urine (Dipstick) >=1000 mg/dL (Negative); Leukocyte Negative (Negative); Nitrite Negative (Negative); Protein, Urine (Dipstick) 300 mg/dL (Neg-Trace); Specific Gravity, Urine 1.022 (1.002-1.036); Urobilinogen 0.2 mg/dL (0.2-1.0); pH, Urine 5.5 (5.0-9.0)
[2018-01-28 03:15] LABS: Bacteria/HPF 2+ HPF (None Seen); Hyaline Casts/LPF 0-3 HYALINE CAST LPF (0-3 Hyaline); Squamous Epithelial 0-3 HPF (0-3)
[2018-01-28] MEDS ORDERED: ISOVUE-370 76%-LOCM 1 ML ONE (12:41)
--- NOTE | 2018-01-28 12:42 | CT ---
PRELIMINARY REPORT/[facility]/EMERGENTY AFTER-HOURS PROCEDURE CT Abdomen and Pelvis With Intravenous Contrast CLINICAL HISTORY: 52 years old, female; Pain; Abdominal pain; Localized; Lower; Patient HX: Er 5; 52f presents with sup rapubic abdominal pain that started earlier today. Denies dysuria. Denies fever and chills. No flank pain. Reports HX of sepsis and uti in the past TECHNIQUE: Axial computed tomography images of the abdomen and pelvis with intravenous contrast. Coronal reformatted images were created and reviewed. COMPARISON: No relevant prior studies available. FINDINGS: Lower thorax: No acute findings. ABDOMEN: Liver: Normal. No mass. Gallbladder and bile ducts: Normal. No calcified stones. No ductal dilation. Pancreas: Normal. No ductal dilation. Spleen: Normal. No splenomegaly. Adrenals: Normal. No mass. Kidneys and ureters: There is an equivocal subtle area of relatively decreased enhancement in the lef t renal parenchyma (coronal series 601 images 89-90) which raises the possibility of but is not diagn ostic of mild pyelonephritis. No urolithiasis or hydroureteronephrosis. Stomach and bowel: Colonic diverticulosis. No diverticulitis. No bowel wall thickening or intestinal obstruction. Appendix: Normal appendix. PELVIS: Bladder: Unremarkable as visualized. Reproductive: Unremarkable as visualized. ABDOMEN and PELVIS: Intraperitoneal space: Normal. No free air. No significant fluid collection. Bones/joints: No acute fracture. No dislocation. Soft tissues: Unremarkable. Vasculature: Normal. No abdominal aortic aneurysm. Lymph nodes: Normal. No enlarged lymph nodes. IMPRESSION: There is an equivocal subtle area of relatively decreased enhancement in the left renal parenchyma (c oronal series 601 images 89-90) which raises the possibility of but is not diagnostic of mild pyelone phritis. Recommend clinical correlation. Thank you for allowing us to participate in the care of your patient. Dictated and Authenticated by: Adrian Bull MD 01/28/2018 5:24 AM Central Time ([place] & [place]) FINAL REPORT EMERGENCY AFTER HOURS-CT ABDOMEN AND PELVIS: Date: 01/28/18 IMPRESSION: I agree with the preliminary interpretation given by vRjordana. There is a focal area of relatively decreased enhancement involving the left renal cortex in the mid portion anteriorly. When comparing to exam from 07/16/17, this is in an area of prior larger abnormal ity that probably reflected pyelonephritis at that time. This may reflect scarring, though there is n o adjacent volume loss. Recurrent pyelonephritis in this location cannot be excluded. POS: OZZY
== END 2018-01-28 05:51 | disposition home or self-care (01) ==
LOC: ERS 00:26
DX: N39.0 Urinary tract infection, site not specified (principal); E11.9 Type 2 diabetes mellitus without complications; I10 Essential (primary) hypertension; F41.9 Anxiety disorder, unspecified; F32.9 Major depressive disorder, single episode, unspecified; F17.210 Nicotine dependence, cigarettes, uncomplicated; Z79.4 Long term (current) use of insulin; Z79.899 Other long term (current) drug therapy
CPT/HCPCS: 36415; 74177; 80053; 81003; 81015; 83605; 85025; 87077; 87086; 87186; 96361; 96374; J1885

== ENCOUNTER 2018-12-18 14:51 | Outpatient (CLI) | payer OTHER ==
--- NOTE | 2018-12-18 15:15 | RAD ---
RADIOGRAPH RIGHT KNEE 2 VIEWS: Date: 12/18/18 HISTORY: 53-year-old female with right knee pain and disability. FINDINGS: No fracture or dislocation. Tiny osteophytes without high grade joint space narrowing at patellofemor al compartment. Mild articular surface irregularity and mild sclerosis with small osteophytes, but wi thout joint space narrowing, at medial compartment. Unremarkable lateral compartment. Small joint eff usion. IMPRESSION: Mild to moderate osteoarthrosis of the medial compartment of the right knee. POS: [facility]
== END 2018-12-18 14:52 | disposition home or self-care (01) ==
LOC: BICRAD 14:51
PROVIDERS: ATTEND Internal Medicine
DX: Z02.71 Encounter for disability determination (principal); M17.11 Unilateral primary osteoarthritis, right knee

== ENCOUNTER 2019-01-21 08:28 | Emergency (ER) | payer SELFPAY ==
[2019-01-21] MEDS ORDERED: Bicillin LA 1.2 MILLION UNITS/2 ML SYRINGE ONE (09:24)
[2019-01-21] MEDS ORDERED: Dexamethasone 10 MG/ML VIAL ONE (09:24)
== END 2019-01-21 09:51 | disposition home or self-care (01) ==
LOC: ERS 08:28
DX: J02.0 Streptococcal pharyngitis (principal); E11.9 Type 2 diabetes mellitus without complications; I10 Essential (primary) hypertension; F41.9 Anxiety disorder, unspecified; F32.9 Major depressive disorder, single episode, unspecified; F17.210 Nicotine dependence, cigarettes, uncomplicated; Z79.4 Long term (current) use of insulin; Z71.6 Tobacco abuse counseling; Z79.899 Other long term (current) drug therapy
CPT/HCPCS: 87430; 96372; 99406; J0561; J1100

== ENCOUNTER 2019-05-27 06:24 | Emergency (ER) | payer SELFPAY ==
[2019-05-27] MEDS ORDERED: Ketorolac Tromethamine 30 MG/ML VIAL ONE (06:50)
[2019-05-27 07:06] LABS: Bacteria/HPF None Seen HPF (None Seen); Bilirubin Negative (Negative); Blood, Urine 1+ (Negative); Clarity Clear (Clear); Glucose, Urine (Dipstick) 500 mg/dL (Negative); Leukocyte 25 Leu/uL (Negative); Nitrite Negative (Negative); Protein, Urine (Dipstick) 300 mg/dL (Neg-Trace); RBC/HPF 0-3 HPF (0-3); Urobilinogen Normal mg/dL (Less than 2); WBC/HPF 21-50 HPF (0-3)
[2019-05-27] MEDS ORDERED: HYDROcodone/Acetaminophen 10/325 mg Tablet ONE (08:40)
== END 2019-05-27 08:46 | disposition home or self-care (01) ==
LOC: ERS 06:24
DX: M54.5 Low back pain (principal); R82.81 Pyuria; E11.9 Type 2 diabetes mellitus without complications; I10 Essential (primary) hypertension; F17.210 Nicotine dependence, cigarettes, uncomplicated; Z79.4 Long term (current) use of insulin
CPT/HCPCS: 36416; 81003; 81015; 99283; J1885

== ENCOUNTER 2020-11-18 23:17 | Emergency (ER) | payer OTHER, SELFPAY ==
[2020-11-19] MEDS ORDERED: Acetaminophen 500 MG TAB ONE (00:52)
== END 2020-11-19 01:58 | disposition home or self-care (01) ==
LOC: ERS 23:17
DX: S00.83XA Contusion of other part of head, initial encounter (principal); E11.9 Type 2 diabetes mellitus without complications; I10 Essential (primary) hypertension; F17.210 Nicotine dependence, cigarettes, uncomplicated; Z79.4 Long term (current) use of insulin; Y04.8XXA Assault by other bodily force, initial encounter
CPT/HCPCS: 70450; 70486; 72125

== ENCOUNTER 2021-06-21 08:04 | Observation (INO) | payer OTHER, SELFPAY ==
[2021-06-21 08:55] LABS: INR-International Normal Ratio 1.1; Prothrombin Time 13.9 sec (12.0-14.7)
[2021-06-21 08:56] LABS: PTT 37.2 sec (22.9-36.1)
[2021-06-21 09:03] LABS: ALT (SGPT) 15 U/L (8-55); AST (SGOT) 16 U/L (5-34); Albumin 3.7 g/dL (3.5-5.0); Alkaline Phosphatase 138 U/L (40-110); Anion Gap 13 mmol/L (10-20); BUN (Urea Nitrogen) 24 mg/dL (9.8-20.1); Bilirubin, Total 0.4 mg/dL (0.2-1.2); Calc. Creatinine Clearance 0 mL/min (70-130); Calcium 9.8 mg/dL (7.8-10.44); Carbon Dioxide 20 mmol/L (22-29); Chloride 111 mmol/L (98-107); Globulin 4.1 g/dL (2.4-3.5); Glucose 124 mg/dL (70-105); Potassium 4.8 mmol/L (3.5-5.1); Protein, Total 7.8 g/dL (6.0-8.3); Sodium 139 mmol/L (136-145)
[2021-06-21 09:08] LABS: Mean Corpuscular HGB CONC 32.1 g/dL (32.0-36.0); Mean Corpuscular Hemoglobin 30.3 pg (27.0-31.0); Mean Corpuscular Volume 94.5 fL (78.0-98.0); Mean Platelet Volume 7.8 fL (7.4-10.4); Platelet Count 168 thou/uL (130-400); RBC Distribution Width 12.8 % (11.5-14.5); Red Blood Cell (RBC) Count 3.63 mill/uL (4.20-5.40); White Blood Cell (WBC) Count 7.3 thou/uL (4.8-10.8)
[2021-06-21] MEDS ORDERED: Acetaminophen 500 MG TAB ONE (09:34)
[2021-06-21 09:39] LABS: Band 10 % (5-11); Eosinophils 2 % (0-10); Lymphocytes 17 % (21-51); MDiff Complete? YES; Monocytes 12 % (0-10); Neutrophil 58 % (42-75); Platelet Morphology Comment Appears Adequate; RBC Morphology Normal
[2021-06-21 10:56] LABS: Bacteria/HPF None Seen HPF (None Seen); Bilirubin Negative (Negative); Blood, Urine 1+ (Negative); Clarity Clear (Clear); Glucose, Urine (Dipstick) Normal (Negative); Ketone, Urine Negative (Negative); Leukocyte 25 Leu/uL (Negative); Nitrite Negative (Negative); Protein, Urine (Dipstick) 300 mg/dL (Neg-Trace); Specific Gravity, Urine 1.015 (1.002-1.036); Squamous Epithelial 0-3 HPF (0-3); Urobilinogen Normal mg/dL (Less than 2); WBC/HPF 0-3 HPF (0-3)
[2021-06-21] MEDS ORDERED: cefTRIAXone\\ROCEPHIN 2 GM VIAL ONE (12:36)
[2021-06-21] MEDS ORDERED: Morphine 4 MG/ML VIAL ONE (12:50)
[2021-06-21] MEDS ORDERED: Iopamidol-370 76% 500 ML 1 ML ONE (13:22)
[2021-06-21] MEDS ORDERED: Azithromycin 500 MG VIAL ONE (13:55)
[2021-06-21] MEDS ORDERED: Electrolyte Replacement Protocol 1 EACH FS SCH (14:15)
[2021-06-21] MEDS ORDERED: traZODone HCl 50 MG TAB PO PRN (14:17)
[2021-06-21] MEDS ORDERED: Ondansetron ODT 4 MG TAB PO PRN (14:19)
[2021-06-21] MEDS ORDERED: Ondansetron PF 4 MG/2 ML Vial IVP PRN (14:19)
[2021-06-21] MEDS ORDERED: Dextrose 5% in Water 1,000 ML IV PRN (14:20)
[2021-06-21] MEDS ORDERED: HumaLOG 300 UNITS/3 ML VIAL SC PRN ×2 (14:20)
[2021-06-21] MEDS ORDERED: Dextrose 50% Abboject 50 ML SYRINGE SLOW IVP PRN (14:20)
[2021-06-21] MEDS ORDERED: Albuterol Sulfate 2.5 mg/3 ml Neb NEB PRN (14:22)
[2021-06-21] MEDS ORDERED: hydrALAZINE 20 MG/ML VIAL SLOW IVP PRN (14:27)
[2021-06-21 15:08] LABS: SARS-CoV-2 NAA Rapid Test Not Detected (NotDetected)
[2021-06-21] MEDS: Hydrochlorothiazide 25 MG TAB PO SCH (16:11)
[2021-06-21] MEDS: Sodium Chloride 0.9% 1,000 ML IV SCH ×2 (16:11→23:08)
[2021-06-21] MEDS ORDERED: Electrolyte Replacement Protocol FS PRN (16:15)
[2021-06-21] MEDS: Acetaminophen 325 MG TAB PO PRN ×2 (16:28→20:13)
[2021-06-21 17:18] VITALS: BMI 35.2
[2021-06-22 06:53] LABS: #Eosinphils 0.1 thou/uL (0.0-0.7); #Lymphocytes 2.2 thou/uL (1.20-3.40); #Monocytes 0.7 thou/uL (0.11-0.59); #Neutrophils 4.4 thou/uL (1.40-6.50); %Basophils 0.6 % (0.0-1.0); %Eosinophils 1.6 % (0.0-10.0); %Lymphocytes 29.7 % (21.0-51.0); %Monocytes 9.8 % (0.0-10.0); %Neutrophils 58.3 % (42.0-75.0); Hemoglobin 9.5 g/dL (12.0-16.0); Mean Corpuscular HGB CONC 31.9 g/dL (32.0-36.0); Mean Corpuscular Hemoglobin 30.5 pg (27.0-31.0); Mean Corpuscular Volume 95.5 fL (78.0-98.0); Mean Platelet Volume 7.7 fL (7.4-10.4); Platelet Count 131 thou/uL (130-400); RBC Distribution Width 12.7 % (11.5-14.5); Red Blood Cell (RBC) Count 3.11 mill/uL (4.20-5.40); White Blood Cell (WBC) Count 7.5 thou/uL (4.8-10.8)
[2021-06-22 07:10] LABS: Anion Gap 11 mmol/L (10-20); BUN (Urea Nitrogen) 19 mg/dL (9.8-20.1); Calc. Creatinine Clearance 73 mL/min (70-130); Calcium 8.7 mg/dL (7.8-10.44); Carbon Dioxide 18 mmol/L (22-29); Chloride 112 mmol/L (98-107); Glucose 104 mg/dL (70-105); Magnesium 1.6 mg/dL (1.6-2.6); Potassium 4.4 mmol/L (3.5-5.1); Sodium 137 mmol/L (136-145)
[2021-06-22 07:51] LABS: Hemoglobin A1c 6.9 % (4.0-6.0)
[2021-06-22 08:05] VITALS: TEMP 99
[2021-06-22 09:00] VITALS: BP 158/73
[2021-06-22] MEDS ORDERED: Magnesium 2 GM/50 ML 2 GM in Premix Bag 1 BAG IVPB SCH (09:00)
[2021-06-22] MEDS ORDERED: Lisinopril 10 MG TAB PO SCH (09:00)
[2021-06-22] MEDS: Hydrochlorothiazide 25 MG TAB PO SCH (09:01)
[2021-06-22] MEDS ORDERED: cefTRIAXone\\ROCEPHIN 2 GM in Sodium Chloride 0.9% 100 ML IVPB SCH (13:00)
[2021-06-22] MEDS ORDERED: Azithromycin 500 MG in Sodium Chloride 0.9% 250 ML 250 ML IVPB SCH (14:00)
== END 2021-06-22 12:32 | disposition home or self-care (01) ==
LOC: ERS 08:04 → T4-B 12:28
PROVIDERS: ADMIT Internal Medicine; ATTEND Internal Medicine
DX: A41.9 Sepsis, unspecified organism (principal); J18.9 Pneumonia, unspecified organism; N17.9 Acute kidney failure, unspecified; N30.01 Acute cystitis with hematuria; I10 Essential (primary) hypertension; E11.9 Type 2 diabetes mellitus without complications; Z20.822 Contact with and (suspected) exposure to COVID-19; Z79.4 Long term (current) use of insulin; Z79.84 Long term (current) use of oral hypoglycemic drugs; Z79.899 Other long term (current) drug therapy
CPT/HCPCS: 36415; 36416; 71045; 74177; 80048; 80053; 81003; 81015; 83036; 83605; 83735; 85025; 85610; 85730; 87040; 87086; 94760; 96365; 96367; 96374; 96375; G0378; J0456; J0696; J2270; J3475; J7050; Q9967; U0002

== ENCOUNTER 2022-03-21 14:03 | Inpatient (IN) | payer OTHER ==
[2022-03-21 14:44] LABS: #Basophils 0.1 thou/uL (0.0-0.2); #Eosinphils 0.3 thou/uL (0.0-0.7); #Lymphocytes 2.6 thou/uL (1.20-3.40); #Monocytes 0.5 thou/uL (0.11-0.59); #Neutrophils 4.3 thou/uL (1.40-6.50); %Basophils 0.9 % (0.0-1.0); %Eosinophils 3.9 % (0.0-10.0); %Lymphocytes 33.3 % (21.0-51.0); %Monocytes 6.3 % (0.0-10.0); %Neutrophils 55.6 % (42.0-75.0); Hemoglobin 11.1 g/dL (12.0-16.0); Mean Corpuscular Hemoglobin 30.8 pg (27.0-31.0); Mean Corpuscular Volume 90.6 fL (78.0-98.0); Mean Platelet Volume 8.2 fL (7.4-10.4); Platelet Count 260 thou/uL (130-400); RBC Distribution Width 12.8 % (11.5-14.5); White Blood Cell (WBC) Count 7.6 thou/uL (4.8-10.8)
[2022-03-21 15:06] LABS: ALT (SGPT) 14 U/L (8-55); AST (SGOT) 14 U/L (5-34); Albumin 3.2 g/dL (3.5-5.0); Alkaline Phosphatase 87 U/L (40-110); Anion Gap 15 mmol/L (10-20); BUN (Urea Nitrogen) 43 mg/dL (9.8-20.1); Bilirubin, Total 0.2 mg/dL (0.2-1.2); Calc. Creatinine Clearance 0 mL/min (70-130); Carbon Dioxide 19 mmol/L (22-29); Chloride 109 mmol/L (98-107); Estimated GFR 28; Globulin 3.6 g/dL (2.4-3.5); Glucose 438 mg/dL (70-105); Potassium 5.2 mmol/L (3.5-5.1); Protein, Total 6.8 g/dL (6.0-8.3); Sodium 138 mmol/L (136-145)
[2022-03-21] MEDS ORDERED: Nitroglycerin 2% Ointment 1 INCH/1 GM Packet ONE (15:14)
[2022-03-21] MEDS ORDERED: Aspirin Chewable 81 MG TAB ONE (15:15)
[2022-03-21] MEDS ORDERED: Nitroglycerin 0.4 MG TAB (25 Tab Bottle) SL PRN (16:36)
[2022-03-21 17:43] LABS: Hemoglobin A1c 10.3 % (4.0-6.0)
[2022-03-21 17:57] LABS: Troponin I Less than 0.010 ng/mL (< 0.028)
[2022-03-21] MEDS: Sodium Chloride 0.9% 1,000 ML IV SCH (20:48)
[2022-03-21] MEDS: Heparin 5,000 UNITS/ML VIAL SC SCH (20:48)
[2022-03-21 21:24] VITALS: BMI 38.7
[2022-03-21 21:39] LABS: Troponin I Less than 0.010 ng/mL (< 0.028)
[2022-03-21] MEDS ORDERED: Dextrose 50% Abboject 50 ML SYRINGE SLOW IVP PRN (22:23)
[2022-03-21] MEDS ORDERED: Dextrose 5% in Water 1,000 ML IV PRN (22:23)
[2022-03-21] MEDS ORDERED: HumaLOG 300 UNITS/3 ML VIAL SC PRN ×2 (22:23)
[2022-03-21] MEDS ORDERED: traZODone HCl 150 MG TAB PO SCH (22:45)
[2022-03-22] MEDS ORDERED: ADENOSINE 60 MG/20 ML VIAL ONE (08:37)
[2022-03-22] MEDS ORDERED: Lisinopril 10 MG TAB PO SCH (09:00)
[2022-03-22 09:12] LABS: Anion Gap 14 mmol/L (10-20); BUN (Urea Nitrogen) 36 mg/dL (9.8-20.1); Calc. Creatinine Clearance 64 mL/min (70-130); Calcium 8.9 mg/dL (7.8-10.44); Carbon Dioxide 19 mmol/L (22-29); Chloride 111 mmol/L (98-107); Estimated GFR 36; Glucose 223 mg/dL (70-105); Potassium 4.8 mmol/L (3.5-5.1); Sodium 139 mmol/L (136-145)
[2022-03-22] MEDS: Aspirin Chewable 81 MG TAB PO SCH (12:43)
[2022-03-22] MEDS: Heparin 5,000 UNITS/ML VIAL SC SCH ×2 (12:44→15:54)
[2022-03-22] MEDS: Sodium Chloride 0.9% 1,000 ML IV SCH (12:44)
[2022-03-22] MEDS ORDERED: hydrALAZINE 20 MG/ML VIAL SLOW IVP PRN (14:04)
[2022-03-22] MEDS ORDERED: Labetalol HCl 100 MG/20 ML VIAL SLOW IVP PRN (14:58)
[2022-03-22] MEDS ORDERED: glipiZIDE 5 MG TAB PO SCH (15:00)
[2022-03-22] MEDS ORDERED: Amlodipine 5 MG TAB PO SCH (15:00)
[2022-03-22] MEDS ORDERED: Acetaminophen 325 MG TAB PO PRN (16:36)
[2022-03-22] MEDS ORDERED: Acetaminophen/Codeine 30-300mg Tablet PO PRN (16:36)
[2022-03-22] MEDS: HumaLOG 300 UNITS/3 ML VIAL SC PRN (17:38)
[2022-03-22] MEDS: Amlodipine 5 MG TAB PO SCH (20:13)
[2022-03-22] MEDS: traZODone HCl 150 MG TAB PO SCH (20:13)
[2022-03-23 05:25] LABS: Anion Gap 14 mmol/L (10-20); BUN (Urea Nitrogen) 40 mg/dL (9.8-20.1); Calc. Creatinine Clearance 47 mL/min (70-130); Calcium 8.5 mg/dL (7.8-10.44); Carbon Dioxide 20 mmol/L (22-29); Chloride 109 mmol/L (98-107); Estimated GFR 25; Glucose 214 mg/dL (70-105); Potassium 4.5 mmol/L (3.5-5.1); Sodium 138 mmol/L (136-145)
[2022-03-23] MEDS: HumaLOG 300 UNITS/3 ML VIAL SC PRN ×3 (05:49→16:13)
[2022-03-23] MEDS ORDERED: glipiZIDE 5 MG TAB PO SCH (07:30)
[2022-03-23] MEDS: Aspirin Chewable 81 MG TAB PO SCH (08:00)
[2022-03-23] MEDS: Amlodipine 5 MG TAB PO SCH ×2 (08:00→19:59)
[2022-03-23] MEDS ORDERED: Sodium Chloride 0.45% 1,000 ML IV SCH (09:30)
[2022-03-23 13:48] LABS: Bacteria/HPF None Seen HPF (None Seen); Bilirubin Negative (Negative); Blood, Urine Negative (Negative); Clarity Clear (Clear); Glucose, Urine (Dipstick) 300 mg/dL (Negative); Ketone, Urine Negative (Negative); Leukocyte Negative Leu/uL (Negative); Nitrite Negative (Negative); Protein, Urine (Dipstick) 300 mg/dL (Neg-Trace); RBC/HPF 0-3 HPF (0-3); Specific Gravity, Urine 1.012 (1.002-1.036); Squamous Epithelial 0-3 HPF (0-3); Urobilinogen Normal mg/dL (Less than 2); WBC/HPF None Seen HPF (0-3)
[2022-03-23] MEDS: glipiZIDE 5 MG TAB PO SCH (16:02)
[2022-03-23] MEDS ORDERED: Insulin Glargine 30 UNITS/0.3 ML VIAL SC SCH (16:45)
[2022-03-23] MEDS ORDERED: Polyethylene Glycol 3350 17 GM Packet PO PRN (18:01)
[2022-03-23] MEDS ORDERED: Polyethylene Glycol 3350 17 GM Packet PO SCH (18:15)
[2022-03-23] MEDS ORDERED: Carvedilol 6.25 MG TAB PO SCH (18:45)
[2022-03-23] MEDS: Sodium Chloride 0.45% 1,000 ML IV SCH ×2 (19:59→21:07)
[2022-03-23] MEDS: traZODone HCl 150 MG TAB PO SCH (19:59)
[2022-03-23] MEDS ORDERED: Atorvastatin Calcium 20 MG TAB PO SCH (21:00)
[2022-03-23] MEDS ORDERED: Senokot S 8.6-50 MG TAB PO SCH (21:00)
[2022-03-24 05:34] LABS: Anion Gap 11 mmol/L (10-20); BUN (Urea Nitrogen) 41 mg/dL (9.8-20.1); Calc. Creatinine Clearance 58 mL/min (70-130); Calcium 8.8 mg/dL (7.8-10.44); Carbon Dioxide 22 mmol/L (22-29); Chloride 109 mmol/L (98-107); Estimated GFR 32; Glucose 214 mg/dL (70-105); Potassium 5.1 mmol/L (3.5-5.1); Sodium 137 mmol/L (136-145)
[2022-03-24 05:43] LABS: Eosinophils 8 % (0-10); Hemoglobin 10.6 g/dL (12.0-16.0); Lymphocytes 32 % (21-51); MDiff Complete? YES; Mean Corpuscular HGB CONC 33.7 g/dL (32.0-36.0); Mean Corpuscular Hemoglobin 30.8 pg (27.0-31.0); Mean Corpuscular Volume 91.4 fL (78.0-98.0); Mean Platelet Volume 7.9 fL (7.4-10.4); Monocytes 5 % (0-10); Neutrophil 55 % (42-75); Platelet Count 250 thou/uL (130-400); Platelet Morphology Comment Appears Adequate; RBC Distribution Width 12.5 % (11.5-14.5); RBC Morphology Normal; Red Blood Cell (RBC) Count 3.44 mill/uL (4.20-5.40); White Blood Cell (WBC) Count 7.3 thou/uL (4.8-10.8)
[2022-03-24] MEDS ORDERED: Carvedilol 6.25 MG TAB PO SCH (08:00)
[2022-03-24 08:01] VITALS: TEMP 98
[2022-03-24] MEDS: Aspirin Chewable 81 MG TAB PO SCH (08:35)
[2022-03-24] MEDS: Amlodipine 5 MG TAB PO SCH (08:35)
[2022-03-24] MEDS: glipiZIDE 5 MG TAB PO SCH (08:36)
[2022-03-24] MEDS: Sodium Chloride 0.45% 1,000 ML IV SCH (10:38)
[2022-03-24 11:09] VITALS: BP 162/81
== END 2022-03-24 11:05 | disposition home or self-care (01) | DRG 313 ==
LOC: ERS 14:03 → ERHOLD 16:13 → 2SW 19:59 → OBSVTOIN 03-23 10:21
PROVIDERS: ADMIT Internal Medicine; ATTEND Internal Medicine
DX: R07.89 Other chest pain (principal); N17.9 Acute kidney failure, unspecified; N18.4 Chronic kidney disease, stage 4 (severe); F41.9 Anxiety disorder, unspecified; F32.A Depression, unspecified; I12.9 Hypertensive chronic kidney disease with stage 1 through stage 4 chronic kidney disease, or unspecified chronic kidney disease; N18.30 Chronic kidney disease, stage 3 unspecified; E11.22 Type 2 diabetes mellitus with diabetic chronic kidney disease; E87.5 Hyperkalemia; E11.69 Type 2 diabetes mellitus with other specified complication; E11.65 Type 2 diabetes mellitus with hyperglycemia; Z20.822 Contact with and (suspected) exposure to COVID-19; M19.90 Unspecified osteoarthritis, unspecified site; Z79.4 Long term (current) use of insulin; Z79.84 Long term (current) use of oral hypoglycemic drugs; Z79.899 Other long term (current) drug therapy; Z87.891 Personal history of nicotine dependence
CPT/HCPCS: 36415; 36416; 71045; 78452; 80048; 80053; 81001; 83036; 83735; 84443; 84484; 85025; 93005; 93017; 94760; 96374; A9500; G0378; J0153; J1644; J1815; J7050; U0003; U0005

== ENCOUNTER 2022-04-14 13:32 | Emergency (ER) | payer OTHER ==
[~2022-04-14 13:32] MED LIST: Iopamidol-370 76% 500 ML 1 ML ONE
[2022-04-14] MEDS ORDERED: cefTRIAXone\\ROCEPHIN 1 GM VIAL ONE (14:14)
[2022-04-14 14:16] LABS: Hemoglobin 10.9 g/dL (12.0-16.0); Mean Corpuscular HGB CONC 32.5 g/dL (32.0-36.0); Mean Corpuscular Hemoglobin 30.5 pg (27.0-31.0); Mean Corpuscular Volume 93.9 fL (78.0-98.0); Mean Platelet Volume 7.7 fL (7.4-10.4); Platelet Count 302 thou/uL (130-400); RBC Distribution Width 12.7 % (11.5-14.5); Red Blood Cell (RBC) Count 3.58 mill/uL (4.20-5.40)
[2022-04-14 14:32] LABS: Band 1 % (5-11); Eosinophils 5 % (0-10); Lymphocytes 30 % (21-51); MDiff Complete? YES; Monocytes 5 % (0-10); Neutrophil 56 % (42-75); Platelet Morphology Comment Appears Adequate; Polychromasia SLIGHT = 2-3 cells (100X) (0-2/hpf); Reactive Lymphocytes 2 % (0-10)
[2022-04-14 14:38] LABS: ALT (SGPT) 15 U/L (8-55); AST (SGOT) 14 U/L (5-34); Albumin 3.7 g/dL (3.5-5.0); Alkaline Phosphatase 95 U/L (40-110); Anion Gap 8 mmol/L (10-20); BUN (Urea Nitrogen) 38 mg/dL (9.8-20.1); Bilirubin, Total 0.3 mg/dL (0.2-1.2); Calc. Creatinine Clearance 0 mL/min (70-130); Calcium 9.4 mg/dL (7.8-10.44); Carbon Dioxide 24 mmol/L (22-29); Chloride 110 mmol/L (98-107); Estimated GFR 32; Globulin 3.7 g/dL (2.4-3.5); Glucose 190 mg/dL (70-105); Potassium 4.4 mmol/L (3.5-5.1); Protein, Total 7.4 g/dL (6.0-8.3); Sodium 138 mmol/L (136-145)
[2022-04-14 14:50] LABS: Bacteria/HPF None Seen HPF (None Seen); Bilirubin Negative (Negative); Blood, Urine Trace (Negative); Clarity Clear (Clear); Glucose, Urine (Dipstick) 100 mg/dL (Negative); Ketone, Urine Negative (Negative); Leukocyte Negative Leu/uL (Negative); Nitrite Negative (Negative); Protein, Urine (Dipstick) 300 mg/dL (Neg-Trace); RBC/HPF 0-3 HPF (0-3); Specific Gravity, Urine 1.011 (1.002-1.036); Urobilinogen Normal mg/dL (Less than 2); WBC/HPF 0-3 HPF (0-3); pH, Urine 6.5 (5.0-9.0)
[2022-04-14] MEDS ORDERED: HYDROcodone/Acetaminophen 5/325 mg Tablet ONE (16:20)
== END 2022-04-14 17:55 | disposition home or self-care (01) ==
LOC: ERS 13:32
DX: N12 Tubulo-interstitial nephritis, not specified as acute or chronic (principal); I10 Essential (primary) hypertension; E11.9 Type 2 diabetes mellitus without complications; Z87.891 Personal history of nicotine dependence; Z79.4 Long term (current) use of insulin
CPT/HCPCS: 71045; 74177; 80053; 81003; 81015; 83605; 85025; 87040; 93005; 96374; J0696; Q9967

== ENCOUNTER 2022-06-02 13:23 | Inpatient (IN) | payer OTHER ==
[2022-06-02 14:03] LABS: Hemoglobin 10.7 g/dL (12.0-16.0); Mean Corpuscular HGB CONC 32.8 g/dL (32.0-36.0); Mean Corpuscular Volume 94.4 fl (78.0-98.0); Mean Platelet Volume 7.9 fL (7.4-10.4); Platelet Count 247 10x3/uL (130-400); RBC Distribution Width 12.7 % (11.5-14.5); Red Blood Cell (RBC) Count 3.44 mill/uL (4.20-5.40)
[2022-06-02 14:11] LABS: ALT (SGPT) 15 U/L (8-55); AST (SGOT) 12 U/L (5-34); Albumin 3.1 g/dL (3.5-5.0); Alkaline Phosphatase 89 U/L (40-110); Anion Gap 12 mmol/L (10-20); BUN (Urea Nitrogen) 39 mg/dL (9.8-20.1); Bilirubin, Total 0.2 mg/dL (0.2-1.2); Calc. Creatinine Clearance 0 mL/min (70-130); Calcium 8.5 mg/dL (7.8-10.44); Carbon Dioxide 20 mmol/L (22-29); Chloride 109 mmol/L (98-107); Estimated GFR 18; Globulin 3.4 g/dL (2.4-3.5); Lipase 64 U/L (8-78); Protein, Total 6.5 g/dL (6.0-8.3); Sodium 136 mmol/L (136-145)
[2022-06-02 14:21] LABS: Eosinophils 6 % (0-10); Lymphocytes 38 % (21-51); MDiff Complete? YES; Monocytes 4 % (0-10); Neutrophil 49 % (42-75); Platelet Morphology Comment Appears Adequate; Polychromasia SLIGHT = 2-3 cells (100X) (0-2/hpf); Reactive Lymphocytes 2 % (0-10)
[2022-06-02 14:29] LABS: Glucose 477 mg/dL (70-105)
[2022-06-02 14:37] LABS: Bacteria/HPF None Seen HPF (None Seen); Bilirubin Negative (Negative); Blood, Urine Negative (Negative); Clarity Clear (Clear); Glucose, Urine (Dipstick) Greater than 1000 mg/dL (Negative); Ketone, Urine Negative (Negative); Leukocyte Negative Leu/uL (Negative); Nitrite Negative (Negative); Protein, Urine (Dipstick) 200 mg/dL (Neg-Trace); RBC/HPF 0-3 HPF (0-3); Specific Gravity, Urine 1.014 (1.002-1.036); Squamous Epithelial None Seen HPF (0-3); Urobilinogen Normal mg/dL (Less than 2); WBC/HPF 0-3 HPF (0-3)
[2022-06-02] MEDS ORDERED: Ondansetron PF 4 MG/2 ML Vial ONE (14:43)
[2022-06-02] MEDS ORDERED: Morphine 4 MG/ML VIAL ONE (14:43)
[2022-06-02] MEDS ORDERED: Ondansetron ODT 4 MG TAB PO PRN (16:05)
[2022-06-02] MEDS ORDERED: Calcium Carbonate 500 MG ChewTAB PO PRN (16:05)
[2022-06-02] MEDS ORDERED: Senokot S 8.6-50 MG TAB PO PRN (16:05)
[2022-06-02] MEDS ORDERED: Dextrose 5% in Water 1,000 ML IV PRN (16:07)
[2022-06-02] MEDS ORDERED: hydrALAZINE 20 MG/ML VIAL SLOW IVP PRN (16:07)
[2022-06-02] MEDS ORDERED: Dextrose 50% Abboject 50 ML SYRINGE SLOW IVP PRN (16:07)
[2022-06-02] MEDS ORDERED: HumaLOG 300 UNITS/3 ML VIAL SC PRN (16:07)
[2022-06-02] MEDS ORDERED: Sodium Chloride 0.9% 1,000 ML IV SCH (16:15)
[2022-06-02 17:56] VITALS: BMI 36.6
[2022-06-02] MEDS: Lactated Ringer's 1,000 ML IV SCH (19:26)
[2022-06-02] MEDS: traZODone HCl 50 MG TAB PO SCH (20:10)
[2022-06-02] MEDS: Insulin Glargine 30 UNITS/0.3 ML VIAL SC SCH (20:10)
[2022-06-02] MEDS: Heparin 5,000 UNITS/ML VIAL SC SCH (20:10)
[2022-06-03] MEDS: Lactated Ringer's 1,000 ML IV SCH (01:36)
[2022-06-03] MEDS: Acetaminophen 325 MG TAB PO PRN ×2 (01:39→19:05)
[2022-06-03 06:34] LABS: Phosphorus 4.1 mg/dL (2.3-4.7)
[2022-06-03 06:35] LABS: ALT (SGPT) 13 U/L (8-55); AST (SGOT) 10 U/L (5-34); Albumin 2.7 g/dL (3.5-5.0); Alkaline Phosphatase 69 U/L (40-110); Anion Gap 10 mmol/L (10-20); BUN (Urea Nitrogen) 41 mg/dL (9.8-20.1); Bilirubin, Total 0.2 mg/dL (0.2-1.2); Calc. Creatinine Clearance 45 mL/min (70-130); Calcium 8.3 mg/dL (7.8-10.44); Carbon Dioxide 20 mmol/L (22-29); Chloride 112 mmol/L (98-107); Estimated GFR 25; Globulin 2.9 g/dL (2.4-3.5); Glucose 197 mg/dL (70-105); Magnesium 1.5 mg/dL (1.6-2.6); Potassium 4.9 mmol/L (3.5-5.1); Protein, Total 5.6 g/dL (6.0-8.3); Sodium 137 mmol/L (136-145)
[2022-06-03 07:06] LABS: Hemoglobin 9.4 g/dL (12.0-16.0); Mean Corpuscular HGB CONC 32.1 g/dL (32.0-36.0); Mean Corpuscular Hemoglobin 29.8 pg (27.0-31.0); Mean Platelet Volume 7.8 fL (7.4-10.4); Platelet Count 203 10x3/uL (130-400); RBC Distribution Width 12.6 % (11.5-14.5); Red Blood Cell (RBC) Count 3.14 mill/uL (4.20-5.40); White Blood Cell (WBC) Count 6.9 10x3/uL (4.8-10.8)
[2022-06-03] MEDS: Sodium Chloride 0.9% 1,000 ML IV SCH ×2 (08:29→17:05)
[2022-06-03] MEDS: Heparin 5,000 UNITS/ML VIAL SC SCH ×3 (08:30→20:11)
[2022-06-03] MEDS: Ondansetron PF 4 MG/2 ML Vial IVP PRN (08:36)
[2022-06-03 08:40] LABS: Band 4 % (5-11); Eosinophils 3 % (0-10); Lymphocytes 40 % (21-51); MDiff Complete? YES; Monocytes 8 % (0-10); Neutrophil 44 % (42-75); Platelet Morphology Comment Appears Adequate; RBC Morphology Normal; Vacuoles SLIGHT
[2022-06-03] MEDS ORDERED: FLU VACC QS2022-23(6MOS UP)/PF 60 MCG/0.5 ML SYRINGE IM ONE (09:00)
[2022-06-03] MEDS ORDERED: Magnesium 2 GM/50 ML(in water) 2 GM in Premix Bag 1 BAG IVPB SCH (12:00)
[2022-06-03 19:29] VITALS: TEMP 98
[2022-06-03] MEDS: Insulin Glargine 30 UNITS/0.3 ML VIAL SC SCH (20:11)
[2022-06-03] MEDS: traZODone HCl 50 MG TAB PO SCH (20:11)
[2022-06-04] MEDS: Sodium Chloride 0.9% 1,000 ML IV SCH ×2 (04:18→12:00)
[2022-06-04] MEDS: Acetaminophen 325 MG TAB PO PRN (07:45)
[2022-06-04] MEDS: Ondansetron PF 4 MG/2 ML Vial IVP PRN (07:45)
[2022-06-04 07:47] LABS: Anion Gap 12 mmol/L (10-20); BUN (Urea Nitrogen) 32 mg/dL (9.8-20.1); Calc. Creatinine Clearance 54 mL/min (70-130); Calcium 8.7 mg/dL (7.8-10.44); Carbon Dioxide 18 mmol/L (22-29); Chloride 113 mmol/L (98-107); Estimated GFR 32; Glucose 154 mg/dL (70-105); Hemoglobin 10.2 g/dL (12.0-16.0); Magnesium 1.9 mg/dL (1.6-2.6); Mean Corpuscular HGB CONC 32.4 g/dL (32.0-36.0); Mean Corpuscular Volume 92.7 fl (78.0-98.0); Mean Platelet Volume 7.7 fL (7.4-10.4); Platelet Count 232 10x3/uL (130-400); Potassium 4.9 mmol/L (3.5-5.1); RBC Distribution Width 12.6 % (11.5-14.5); Sodium 138 mmol/L (136-145); White Blood Cell (WBC) Count 7.2 10x3/uL (4.8-10.8)
[2022-06-04 08:22] VITALS: BP 157/78
[2022-06-04 08:40] LABS: Platelet Morphology Comment Appears Adequate; RBC Morphology Normal
[2022-06-04 08:41] LABS: Manual Diff?? YES
[2022-06-04 08:42] LABS: Lymphocytes 39 % (21-51); MDiff Complete? YES; Monocytes 7 % (0-10); Neutrophil 54 % (42-75)
[2022-06-04] MEDS: Heparin 5,000 UNITS/ML VIAL SC SCH (11:49)
== END 2022-06-04 14:50 | disposition home or self-care (01) | DRG 684 ==
LOC: SUATTDRO 13:23 → ERS 13:23 → T4-B 17:44
PROVIDERS: ADMIT Internal Medicine; ATTEND Internal Medicine
DX: N17.9 Acute kidney failure, unspecified (principal); N18.4 Chronic kidney disease, stage 4 (severe); I12.9 Hypertensive chronic kidney disease with stage 1 through stage 4 chronic kidney disease, or unspecified chronic kidney disease; E11.22 Type 2 diabetes mellitus with diabetic chronic kidney disease; F39 Unspecified mood [affective] disorder; D63.1 Anemia in chronic kidney disease; E87.5 Hyperkalemia; E86.0 Dehydration; E83.42 Hypomagnesemia; F41.9 Anxiety disorder, unspecified; F32.A Depression, unspecified; Z87.891 Personal history of nicotine dependence; Z79.899 Other long term (current) drug therapy; Z20.822 Contact with and (suspected) exposure to COVID-19
CPT/HCPCS: 36415; 36416; 74176; 80048; 80053; 81003; 81015; 83690; 83735; 84100; 85025; 96361; 96374; 96375; J1644; J1815; J2270; J2405; J3475; J7050; J7120; Q0162; U0003; U0005

== ENCOUNTER 2022-09-05 09:03 | Inpatient (IN) | payer OTHER ==
[2022-09-05 10:07] LABS: Hemoglobin 9.8 g/dL (12.0-16.0); Mean Corpuscular HGB CONC 32.5 g/dL (32.0-36.0); Mean Corpuscular Hemoglobin 30.1 pg (27.0-31.0); Mean Corpuscular Volume 92.7 fl (78.0-98.0); Mean Platelet Volume 7.8 fL (7.4-10.4); Platelet Count 268 10x3/uL (130-400); RBC Distribution Width 12.4 % (11.5-14.5); Red Blood Cell (RBC) Count 3.26 mill/uL (4.20-5.40); White Blood Cell (WBC) Count 8.8 10x3/uL (4.8-10.8)
[2022-09-05] MEDS ORDERED: Furosemide 40 MG/4 ML VIAL ONE (10:17)
[2022-09-05 10:24] LABS: Eosinophils 3 % (0-10); Lymphocytes 27 % (21-51); MDiff Complete? YES; Monocytes 5 % (0-10); Neutrophil 63 % (42-75); Platelet Morphology Comment Appears Adequate; Polychromasia SLIGHT = 2-3 cells (100X) (0-2/hpf); Reactive Lymphocytes 2 % (0-10)
[2022-09-05 10:28] LABS: Anion Gap 13 mmol/L (10-20); BUN (Urea Nitrogen) 39 mg/dL (9.8-20.1); Calc. Creatinine Clearance 0 mL/min (70-130); Carbon Dioxide 22 mmol/L (22-29); Chloride 109 mmol/L (98-107); Potassium 3.9 mmol/L (3.5-5.1); Sodium 140 mmol/L (136-145)
[2022-09-05 10:29] LABS: ALT (SGPT) 28 U/L (8-55); AST (SGOT) 41 U/L (5-34); Albumin 3.4 g/dL (3.5-5.0); Alkaline Phosphatase 105 U/L (40-110); Bilirubin, Total 0.3 mg/dL (0.2-1.2); Calcium 9.2 mg/dL (7.8-10.44); Estimated GFR 20; Globulin 3.6 g/dL (2.4-3.5); Glucose 74 mg/dL (70-105); Magnesium 1.9 mg/dL (1.6-2.6)
[2022-09-05 12:32] LABS: Bacteria/HPF None Seen HPF (None Seen); Bilirubin Negative (Negative); Blood, Urine Trace (Negative); Clarity Clear (Clear); Glucose, Urine (Dipstick) Normal (Negative); Ketone, Urine Negative (Negative); Leukocyte Negative Leu/uL (Negative); Nitrite Negative (Negative); Protein, Urine (Dipstick) 100 mg/dL (Neg-Trace); RBC/HPF 0-3 HPF (0-3); Specific Gravity, Urine 1.007 (1.002-1.036); Squamous Epithelial 0-3 HPF (0-3); Urobilinogen Normal mg/dL (Less than 2); WBC/HPF 0-3 HPF (0-3)
[2022-09-05] MEDS ORDERED: Acetaminophen 500 MG TAB ONE (13:03)
[2022-09-05] MEDS ORDERED: Dextrose 50% Abboject 50 ML SYRINGE SLOW IVP PRN (13:48)
[2022-09-05] MEDS ORDERED: Dextrose 5% in Water 1,000 ML IV PRN (13:48)
[2022-09-05] MEDS ORDERED: Ondansetron PF 4 MG/2 ML Vial IVP PRN ×2 (13:48→14:00)
[2022-09-05] MEDS ORDERED: HumaLOG 300 UNITS/3 ML VIAL SC PRN ×2 (13:49)
[2022-09-05 13:53] VITALS: BMI 42.0
[2022-09-05] MEDS ORDERED: Ondansetron ODT 4 MG TAB SL PRN (14:00)
[2022-09-05] MEDS ORDERED: Acetaminophen 325 MG TAB PO PRN (14:00)
[2022-09-05] MEDS: Heparin 5,000 UNITS/ML VIAL SC SCH ×2 (15:26→20:01)
[2022-09-05] MEDS ORDERED: Furosemide 100 MG/10 ML VIAL SLOW IVP SCH ×2 (16:00→21:00)
[2022-09-05] MEDS: Amlodipine 5 MG TAB PO SCH (20:01)
[2022-09-05] MEDS: traZODone HCl 150 MG TAB PO SCH (20:01)
[2022-09-05] MEDS: Acetaminophen 325 MG TAB PO PRN (20:05)
[2022-09-05 23:02] LABS: Creatinine, Urine 24.21 mg/dL (47-110)
[2022-09-06] MEDS: Acetaminophen 325 MG TAB PO PRN ×2 (05:51→20:17)
[2022-09-06] MEDS ORDERED: Furosemide 40 MG/4 ML VIAL SLOW IVP SCH (06:00)
[2022-09-06 07:50] LABS: Mean Corpuscular HGB CONC 32.7 g/dL (32.0-36.0); Mean Corpuscular Hemoglobin 30.6 pg (27.0-31.0); Mean Corpuscular Volume 93.5 fl (78.0-98.0); Mean Platelet Volume 8.4 fL (7.4-10.4); Platelet Count 277 10x3/uL (130-400); RBC Distribution Width 12.4 % (11.5-14.5); Red Blood Cell (RBC) Count 3.26 mill/uL (4.20-5.40); White Blood Cell (WBC) Count 8.2 10x3/uL (4.8-10.8)
[2022-09-06 08:10] LABS: Anion Gap 15 mmol/L (10-20); BUN (Urea Nitrogen) 39 mg/dL (9.8-20.1); Calc. Creatinine Clearance 44 mL/min (70-130); Calcium 9.4 mg/dL (7.8-10.44); Carbon Dioxide 24 mmol/L (22-29); Chloride 104 mmol/L (98-107); Estimated GFR 21; Glucose 87 mg/dL (70-105); Potassium 4.1 mmol/L (3.5-5.1); Sodium 139 mmol/L (136-145)
[2022-09-06] MEDS: Heparin 5,000 UNITS/ML VIAL SC SCH ×3 (08:30→20:16)
[2022-09-06] MEDS: Amlodipine 5 MG TAB PO SCH ×2 (08:30→20:16)
[2022-09-06] MEDS ORDERED: FLU VACC QS2022-23(6MOS UP)/PF 60 MCG/0.5 ML SYRINGE IM ONE (09:00)
[2022-09-06 09:37] LABS: Eosinophils 1 % (0-10); Lymphocytes 32 % (21-51); MDiff Complete? YES; Monocytes 6 % (0-10); Neutrophil 61 % (42-75); Platelet Morphology Comment Appears Adequate; Polychromasia SLIGHT = 2-3 cells (100X) (0-2/hpf)
[2022-09-06] MEDS: Atorvastatin Calcium 40 MG TAB PO SCH (10:35)
[2022-09-06] MEDS: Furosemide 40 MG TAB PO SCH (15:02)
[2022-09-06] MEDS: traZODone HCl 150 MG TAB PO SCH (20:17)
[2022-09-06] MEDS ORDERED: traZODone HCl 50 MG TAB PO SCH (21:00)
[2022-09-07] MEDS: Amlodipine 5 MG TAB PO SCH ×2 (09:36→20:06)
[2022-09-07] MEDS: Heparin 5,000 UNITS/ML VIAL SC SCH ×3 (09:36→20:06)
[2022-09-07] MEDS: Furosemide 40 MG TAB PO SCH ×2 (09:39→15:04)
[2022-09-07] MEDS: Atorvastatin Calcium 40 MG TAB PO SCH (09:48)
[2022-09-07] MEDS: traZODone HCl 150 MG TAB PO SCH (20:25)
[2022-09-08 06:30] LABS: Hemoglobin A1c 9.7 % (4.0-6.0)
[2022-09-08 06:41] LABS: Anion Gap 12 mmol/L (10-20); BUN (Urea Nitrogen) 47 mg/dL (9.8-20.1); BUN/Creatinine Ratio 16.38; Calc. Creatinine Clearance 40 mL/min (70-130); Calcium 9.1 mg/dL (7.8-10.44); Carbon Dioxide 27 mmol/L (22-29); Chloride 104 mmol/L (98-107); Estimated GFR 19; Glucose 167 mg/dL (70-105); Phosphorus 4.7 mg/dL (2.3-4.7); Potassium 4.4 mmol/L (3.5-5.1); Sodium 139 mmol/L (136-145)
[2022-09-08] MEDS: Heparin 5,000 UNITS/ML VIAL SC SCH ×2 (09:01→15:29)
[2022-09-08] MEDS: Amlodipine 5 MG TAB PO SCH (09:01)
[2022-09-08] MEDS: Atorvastatin Calcium 40 MG TAB PO SCH (09:01)
[2022-09-08] MEDS: Furosemide 40 MG TAB PO SCH ×2 (09:01→15:29)
[2022-09-08 13:06] VITALS: BP 151/87; TEMP 97.9
== END 2022-09-08 16:06 | disposition home or self-care (01) | DRG 683 ==
LOC: ERS 09:03 → T4-B 11:30 → ERHOLD 11:30 → T4-B 13:26
PROVIDERS: ADMIT Family Medicine; ATTEND Internal Medicine
DX: N17.9 Acute kidney failure, unspecified (principal); Z68.41 Body mass index [BMI] 40.0-44.9, adult; I12.9 Hypertensive chronic kidney disease with stage 1 through stage 4 chronic kidney disease, or unspecified chronic kidney disease; N18.4 Chronic kidney disease, stage 4 (severe); E11.22 Type 2 diabetes mellitus with diabetic chronic kidney disease; D63.1 Anemia in chronic kidney disease; E66.01 Morbid (severe) obesity due to excess calories; E88.09 Other disorders of plasma-protein metabolism, not elsewhere classified; F41.9 Anxiety disorder, unspecified; F32.A Depression, unspecified; F17.210 Nicotine dependence, cigarettes, uncomplicated; G47.00 Insomnia, unspecified; Z79.899 Other long term (current) drug therapy; Z79.4 Long term (current) use of insulin
CPT/HCPCS: 36415; 36416; 71045; 76770; 80048; 80053; 80069; 81003; 81015; 82570; 83036; 83735; 83880; 84156; 84484; 85025; 93005; 96374; J1644; J1940

== ENCOUNTER 2023-02-20 15:26 | Emergency (ER) | payer OTHER ==
[2023-02-20 17:28] LABS: Bacteria/HPF None Seen HPF (None Seen); Bilirubin Negative (Negative); Blood, Urine Negative (Negative); CAUTI Indications for Culture Dysuria,urgency,freq; Clarity Clear (Clear); Glucose, Urine (Dipstick) Normal (Negative); Ketone, Urine Negative (Negative); Leukocyte Negative Leu/uL (Negative); Nitrite Negative (Negative); Protein, Urine (Dipstick) 100 mg/dL (Neg-Trace); RBC/HPF 0-3 HPF (0-3); Specific Gravity, Urine 1.009 (1.002-1.036); Squamous Epithelial 0-3 HPF (0-3); Urobilinogen Normal mg/dL (Less than 2); WBC/HPF 0-3 HPF (0-3); pH, Urine 5.5 (5.0-9.0)
[2023-02-20 17:29] LABS: Urine Culture Reflex No No
[2023-02-20 18:05] LABS: #Basophils 0.1 thou/uL (0.0-0.2); #Eosinphils 0.3 thou/uL (0.0-0.7); #Monocytes 0.7 thou/uL (0.11-0.59); #Neutrophils 5.9 thou/uL (1.40-6.50); %Basophils 0.6 % (0.0-1.0); %Eosinophils 3.4 % (0.0-10.0); %Lymphocytes 28.6 % (21.0-51.0); %Monocytes 7.3 % (0.0-10.0); %Neutrophils 59.8 % (42.0-75.0); Hematocrit 30.2 % (36.0-47.0); Hemoglobin 10.1 g/dL (12.0-16.0); Mean Corpuscular HGB CONC 33.4 g/dL (32.0-36.0); Mean Corpuscular Hemoglobin 30.6 pg (27.0-31.0); Mean Corpuscular Volume 91.5 fl (78.0-98.0); Mean Platelet Volume 10.7 fL (7.4-10.4); Platelet Count 243 10x3/uL (130-400); RBC Distribution Width 13.7 % (11.5-14.5); White Blood Cell (WBC) Count 9.9 10x3/uL (4.8-10.8)
[2023-02-20 18:28] LABS: ALT (SGPT) 17 U/L (8-55); AST (SGOT) 17 U/L (5-34); Albumin 3.7 g/dL (3.5-5.0); Alkaline Phosphatase 94 U/L (40-110); Anion Gap 17 mmol/L (10-20); BUN (Urea Nitrogen) 55 mg/dL (9.8-20.1); Bilirubin, Total 0.3 mg/dL (0.2-1.2); Calc. Creatinine Clearance 0 mL/min (70-130); Calcium 8.9 mg/dL (7.8-10.44); Carbon Dioxide 22 mmol/L (22-29); Chloride 108 mmol/L (98-107); Estimated GFR 18; Globulin 3.6 g/dL (2.4-3.5); Glucose 118 mg/dL (70-105); Potassium 4.6 mmol/L (3.5-5.1); Protein, Total 7.3 g/dL (6.0-8.3); Sodium 142 mmol/L (136-145)
== END 2023-02-20 19:32 | disposition home or self-care (01) ==
LOC: ERS 15:26
DX: R22.43 Localized swelling, mass and lump, lower limb, bilateral (principal); E11.22 Type 2 diabetes mellitus with diabetic chronic kidney disease; N18.4 Chronic kidney disease, stage 4 (severe); I12.9 Hypertensive chronic kidney disease with stage 1 through stage 4 chronic kidney disease, or unspecified chronic kidney disease; E78.5 Hyperlipidemia, unspecified; Z79.899 Other long term (current) drug therapy; Z87.891 Personal history of nicotine dependence
CPT/HCPCS: 36415; 71045; 80053; 81001; 83880; 84484; 85025; 93005

== ENCOUNTER 2023-08-14 08:36 | Outpatient (CLI) | payer MEDICARE, OTHER | END 2023-08-14 08:37 | disposition home or self-care (01) | LOC: BICULT 08:36 | PROVIDERS: ATTEND Internal Medicine Nephrology | DX: N18.4 Chronic kidney disease, stage 4 (severe) (principal) | CPT/HCPCS: 76770 ==

== ENCOUNTER 2023-09-26 15:47 | Emergency (ER) | payer MEDICARE, MEDICAID ==
[2023-09-26 16:20] LABS: Bilirubin Negative (Negative); Blood, Urine Trace (Negative); Glucose, Urine (Dipstick) 100 mg/dL (Negative); Ketone, Urine Negative (Negative); Leukocyte Negative (Negative); Nitrite Negative (Negative); Protein, Urine (Dipstick) > or equal to 300 mg/dL (Neg-Trace); Urobilinogen 0.2 mg/dL (Less than 2)
[2023-09-26 16:21] LABS: Clarity Clear (Clear)
[2023-09-26 16:31] LABS: Bacteria/HPF 1+ HPF (None Seen); CAUTI Indications for Culture Pelvic or flank pain; RBC/HPF 0-3 HPF (0-3); Squamous Epithelial 0-3 HPF (0-3); WBC/HPF 21-50 HPF (0-3)
[2023-09-26 16:33] LABS: Urine Culture Reflex Yes Yes
[2023-09-26] MEDS ORDERED: Morphine 4 MG/ML VIAL ONE (16:33)
[2023-09-26 16:36] LABS: #Basophils 0.1 thou/uL (0.0-0.2); #Eosinphils 0.4 thou/uL (0.0-0.7); #Monocytes 0.5 thou/uL (0.11-0.59); #Neutrophils 5.2 thou/uL (1.40-6.50); %Basophils 0.9 % (0.0-1.0); %Eosinophils 4.4 % (0.0-10.0); %Lymphocytes 29.4 % (21.0-51.0); %Monocytes 5.4 % (0.0-10.0); %Neutrophils 59.7 % (42.0-75.0); Hematocrit 33.3 % (36.0-47.0); Mean Corpuscular Hemoglobin 30.4 pg (27.0-31.0); Mean Platelet Volume 10.1 fL (7.4-10.4); Platelet Count 280 10x3/uL (130-400); RBC Distribution Width 13.8 % (11.5-14.5); Red Blood Cell (RBC) Count 3.62 mill/uL (4.20-5.40); White Blood Cell (WBC) Count 8.8 10x3/uL (4.8-10.8)
[2023-09-26 16:56] LABS: ALT (SGPT) 13 U/L (8-55); AST (SGOT) 15 U/L (5-34); Albumin 3.4 g/dL (3.5-5.0); Alkaline Phosphatase 87 U/L (40-110); Anion Gap 14 mmol/L (10-20); BUN (Urea Nitrogen) 52 mg/dL (9.8-20.1); Bilirubin, Total 0.2 mg/dL (0.2-1.2); Calc. Creatinine Clearance 0 mL/min (70-130); Calcium 9.2 mg/dL (7.8-10.44); Carbon Dioxide 20 mmol/L (22-29); Chloride 110 mmol/L (98-107); Estimated GFR 16; Globulin 3.8 g/dL (2.4-3.5); Glucose 199 mg/dL (70-105); Potassium 4.5 mmol/L (3.5-5.1); Protein, Total 7.2 g/dL (6.0-8.3); Sodium 139 mmol/L (136-145)
== END 2023-09-26 17:15 | disposition home or self-care (01) ==
LOC: ERS 15:47
DX: M54.31 Sciatica, right side (principal); E11.22 Type 2 diabetes mellitus with diabetic chronic kidney disease; N18.4 Chronic kidney disease, stage 4 (severe); I12.9 Hypertensive chronic kidney disease with stage 1 through stage 4 chronic kidney disease, or unspecified chronic kidney disease; E78.5 Hyperlipidemia, unspecified; Z79.899 Other long term (current) drug therapy; Z87.891 Personal history of nicotine dependence
CPT/HCPCS: 36415; 74176; 80053; 81001; 85025; 87086; 96372; J2270